=== PATIENT | male | born 1950 | race Caucasian/White ===

== ENCOUNTER 2020-03-24 14:44 | Outpatient (REF) | payer MEDICARE, MEDICAID, SELFPAY ==
[2020-03-24 18:37] LABS: HCT 47.4 % (40.0-50.0); HGB 16.3 g/dL (13.5-17.5); MCH 30.6 pg (27.0-33.0); MCHC 34.4 % (32.0-36.0); MCV 89.1 fL (80-95); MPV 12.3 fL (8.0-11.0); Platelet Count 154 10^3/uL (130-400); RBC 5.32 10^6/uL (4.36-5.78); RDW 11.9 % (11.8-14.1); RDW-SD 38.9 fL; WBC 8.17 10^3/uL (4.4-10.8)
[2020-03-24 18:56] LABS: Anion Gap 8.9 mmol/L (3-11); BUN 12 mg/dL (7-18); CO2 25.1 mmol/L (21.0-32.0); CREATININE 0.76 mg/dL (0.70-1.30); Calcium 9.1 mg/dL (8.5-10.1); Calculated LDL 147 mg/dL (<100); Chloride 104 mmol/L (98-107); Cholesterol 229 mg/dL (<200); Glucose 89 mg/dL (74-106); HDL Cholesterol 50 mg/dL (40-60); Sodium 138 mmol/L (136-145); Triglyceride 160 mg/dL (<150)
[2020-03-27 12:51] LABS: PSA, Diagnostic 2.6 ng/ml (0-6.5)
== END 2020-03-24 15:04 ==
LOC: NCHCN 14:44
PROVIDERS: PCP Internal Medicine; Visit Provider Physician Assistant
DX: E78.5 Hyperlipidemia, unspecified (principal); I10 Essential (primary) hypertension; K59.00 Constipation, unspecified; N32.81 Overactive bladder
CPT/HCPCS: 80048; 80061; 85027; 84153

== ENCOUNTER → 2020-07-04 07:39 | Outpatient (BNVA) | payer MEDICARE, MEDICAID, SELFPAY | PROVIDERS: PCP Internal Medicine; Referring Provider Internal Medicine; Visit Provider Physical Therapy Assistant | DX: Z12.11 Encounter for screening for malignant neoplasm of colon (principal) ==

== ENCOUNTER 2021-03-24 10:29 | Outpatient (REF) | payer MEDICARE, MEDICAID, SELFPAY ==
[2021-03-24 15:10] LABS: Abs Immature Grans 0.02 10^3/uL (0.0-0.06); Absolute Basophil Count 0.08 10^3/uL (0.0-0.2); Absolute Eosinophil Count 0.19 10^3/uL (0.0-0.7); Absolute Lymphocyte Count 1.77 10^3/uL (1.2-3.4); Absolute Monocyte Count 0.78 10^3/uL (0.1-0.8); Absolute Neutrophil Count 5.57 10^3/uL (1.2-6.7); Eosinophils % 2.3; HCT 51.3 % (40.0-50.0); HGB 17.2 g/dL (13.5-17.5); Immature Grans % 0.2; MCH 30.1 pg (27.0-33.0); MCHC 33.5 % (32.0-36.0); MCV 89.8 fL (80-95); MPV 11.6 fL (8.0-11.0); Monocytes % 9.3; Neutrophils % 66.2; Nucleated RBC 0 %; Platelet Count 165 10^3/uL (130-400); RBC 5.71 10^6/uL (4.36-5.78); RDW 12.2 % (11.8-14.1); RDW-SD 39.8 fL; WBC 8.41 10^3/uL (4.4-10.8)
[2021-03-24 15:30] LABS: ALT 26 U/L (16-63); AST 17 U/L (15-37); Albumin 4.4 g/dL (3.4-5.0); Alkaline Phosphatase 135 U/L (46-116); Anion Gap 8.6 mmol/L (3-11); BUN 10 mg/dL (7-18); Bilirubin, Total 0.8 mg/dL (0.2-1.0); CO2 28.4 mmol/L (21.0-32.0); CREATININE 0.7 mg/dL (0.70-1.30); Calcium 9.5 mg/dL (8.5-10.1); Chloride 104 mmol/L (98-107); Creatine Kinase 28 U/L (39-308); Glucose 93 mg/dL (74-106); Potassium 4.1 mmol/L (3.5-5.1); Sodium 141 mmol/L (136-145); Total Protein 7.7 g/dL (6.4-8.2)
[2021-03-24 15:44] LABS: ESR 20 mm/hr (0-20)
[2021-03-24 15:54] LABS: Calculated LDL 145 mg/dL (<100); Cholesterol 240 mg/dL (<200); HDL Cholesterol 45 mg/dL (40-60); Triglyceride 251 mg/dL (<150)
[2021-03-24 15:54] LABS: Bilirubin Negative (Negative); Blood Trace-lysed (Negative); Clarity Clear (Clear); Glucose Negative (Negative); Ketones Negative (Negative); Leukocyte Esterase Negative (Negative); Nitrite Negative (Negative); Specific Gravity 1.015 (1.005-1.025); Urobilinogen 0.2 EU/dL (Up TO 0.2)
[2021-03-24 16:18] LABS: Vitamin B12 518 pg/mL (193-986)
[2021-03-24 16:22] LABS: Bacteria Negative HPF (Negative); C & S Indicated? No; Crystals Negative HPF (Negative); Epithelial Cells Negative HPF (Negative); Mucus Negative (Negative); RBC 0-2 HPF (0-2); WBC Negative HPF (0-5)
[2021-03-25 11:27] LABS: Hepatitis C Ab w Rflx HCV PCR Negative (Negative)
== END 2021-03-24 10:30 | disposition home or self-care (01) ==
LOC: LBN 10:29
PROVIDERS: Physician Assistant; PCP Internal Medicine; Visit Provider Family Medicine
DX: R21 Rash and other nonspecific skin eruption (principal); R20.9 Unspecified disturbances of skin sensation; K92.1 Melena; Z11.59 Encounter for screening for other viral diseases; I10 Essential (primary) hypertension; E78.5 Hyperlipidemia, unspecified; R31.9 Hematuria, unspecified
CPT/HCPCS: 80053; 80061; 82550; 85652; 86803; 81003; 81015; 82607; 85025

== ENCOUNTER 2021-03-26 14:22 | Outpatient (CLI) | payer MEDICARE, MEDICAID, SELFPAY ==
--- NOTE | 2021-03-26 | DI.RAD_ITS ---
Exam(s) XR HIP RT COMPLETE AP PELVIS EXAM: XR HIP RT COMPLETE AP PELVIS CLINICAL HISTORY: RT HIP PAIN, S/P FALL FEW MONTHS AGO. TECHNIQUE: 2D digital imaging was performed. COMPARISON: No exams were available for comparison FINDINGS: There is no evidence of pelvic nor hip fracture. No obvious degenerative changes in the hips. Addit ional lateral view of the right hip does not reveal degenerative changes. No evidence of avascular n ecrosis. Remainder of the bones of the pelvis appear unremarkable as do the sacroiliac joints. No o sseous lesions. IMPRESSION: No fractures and no degenerative changes. DATA REPOSITORY: RADIATION DOSE DELIVERED:
== END 2021-03-26 14:42 ==
PROVIDERS: PCP Internal Medicine; Visit Provider Physician Assistant Medical
DX: M25.551 Pain in right hip (principal)
CPT/HCPCS: 73502

== ENCOUNTER 2021-04-03 00:58 | Outpatient (CLI) | payer MEDICARE, MEDICAID, SELFPAY ==
[2021-04-03] MEDS: Gadoterate meglumine 20 ML VIAL 18 ML IVP (15:22)
--- NOTE | 2021-04-03 15:40 | DI.MRI_ITS ---
Exam(s) MR THORACIC SPINE WO/W EXAM: MR THORACIC SPINE WO/W CLINICAL HISTORY: THORACIC BACK PAIN,M54.9,H/O MASS,? MYELITIS,URINARY FREQUENCY. TECHNIQUE: Multiplanar multisequence MRI was performed. COMPARISON: No exams were available for comparison FINDINGS: MR examination of thoracic spine was performed according to the usual protocol with additional pre an d post contrast T1 fat sat imaging. No bony signal abnormality seen. Incidental note is made of tiny nerve root cysts at multiple levels bilaterally. The spinal canal is of normal diameter. There is no mass lesion or enhancing lesion i n the spinal canal. There is no mass lesion or enhancing lesion of the spinal cord, which shows norm al signal throughout. No disc herniation identified in the region surveyed. IMPRESSION: Negative thoracic spine MRI. No evidence of mass lesion or enhancing lesion. DATA REPOSITORY:
== END 2021-04-03 01:18 ==
PROVIDERS: PCP Internal Medicine; Visit Provider Physician Assistant Medical
DX: M54.6 Pain in thoracic spine (principal)
CPT/HCPCS: 72157

== ENCOUNTER 2021-04-24 00:34 | Outpatient (CLI) | payer MEDICARE, MEDICAID, SELFPAY ==
--- NOTE | 2021-04-24 09:08 | DI.RAD_ITS ---
Exam(s) XR LUMBAR SPINE COMPLETE EXAM: XR LUMBAR SPINE COMPLETE CLINICAL HISTORY: SCIATICA M54.30. TECHNIQUE: 2D digital imaging was performed of the lumbar spine. Six images were obtained. AP, lat eral, right oblique, left oblique and L5-S1 spot views were obtained. COMPARISON: No exams were available for comparison FINDINGS: BONES: No fracture or destructive lesion. Vertebral bodies are unremarkable. There are endplate osteo phytes at multiple levels of the lumbar spine. DISKS: Intervertebral disc spaces are maintained. ALIGNMENT: Lumbar spinal alignment is within normal limits. No spondylolysis or spondylolisthesis. SOFT TISSUE: Atherosclerosis. IMPRESSION: Mild degenerative changes in the lumbar spine. DATA REPOSITORY: RADIATION DOSE DELIVERED:
--- NOTE | 2021-04-24 09:15 | DI.MRI_ITS ---
Exam(s) MR LUMBAR SPINE WO EXAM: MR LUMBAR SPINE WO CLINICAL HISTORY: SCIATICA M54.30. TECHNIQUE: Multiplanar multisequence MRI of the Lumbar spine was performed. COMPARISON: CR XR LUMBAR SPINE COMPLETE from 04/24/2021 FINDINGS: Bones: The last intervertebral disc space is designated the L5/S1 level for the numbering purpose of this examination. The vertebral body heights are well maintained. Alignment is satisfactory. The si gnal characteristics are unremarkable. Cord: The conus tip ends at the T12 level. It is of normal size and signal intensity. T12-L1: No disc herniations or bulges are present. No central spinal canal or neural foraminal stenos is. L1-2: No disc herniations or bulges are present. No central spinal canal or neural foraminal stenosis . L2-3: No disc herniations or bulges are present. No central spinal canal or neural foraminal stenosis . L3-4: No disc herniations or bulges are present. No central spinal canal or neural foraminal stenosis . L4-5: No disc herniations or bulges are present. No central spinal canal or neural foraminal stenosis . L5-S1: There is a mild diffuse disc bulge. No central spinal canal or neural foraminal stenosis. Soft tissues: Perineural root sleeve cysts are seen at the S2 level. The paraspinal soft tissues are unremarkable. IMPRESSION: No focal disc herniation, central spinal canal or neural foraminal stenosis in the lumbar spine. DATA REPOSITORY:
== END 2021-04-24 00:54 ==
PROVIDERS: PCP Internal Medicine; Visit Provider Physician Assistant
DX: M54.30 Sciatica, unspecified side (principal)
CPT/HCPCS: 72110; 72148

== ENCOUNTER 2021-11-16 09:26 | Outpatient (REF) | payer MEDICARE, MEDICAID, SELFPAY ==
--- NOTE | 2021-11-16 08:14 | SKI_PTH ---
PATIENT: Stewart Soliman LOC: [facility] U#:[id number] AGE/SX: 70/M ROOM: RE11/16/[address]: Tarik Montgomery : 1950 BED: DIS: 11/16/2021 SPEC #: [id number] RECD: 11/16/21 17:46 STATUS: JOSIAS REQ #: [id number] DAVID: 11/16/21 08:[address]: Tarik Montgomery DEPT: Surgical Specimen RECD BY: Kim Cheek ENTERED: 11/16/21 17:47 SP TYPE: NANCY HAGER DR: Austin Chang Tissues: 1 - SKIN BIOPSY(SHAVE/PUNCH) Procedures: SKIN LEVEL 4 Comments: [id number]
[2021-11-16 14:35] LABS: HCT 45.7 % (40.0-50.0); HGB 15.2 g/dL (13.5-17.5); MCH 30.1 pg (27.0-33.0); MCHC 33.3 % (32.0-36.0); MCV 91 fL (80-95); MPV 11.5 fL (8.0-11.0); Platelet Count 182 10^3/uL (130-400); RBC 5.05 10^6/uL (4.36-5.78); RDW 12.6 % (11.8-14.1); RDW-SD 41.4 fL; WBC 7.16 10^3/uL (4.4-10.8)
[2021-11-16 14:49] LABS: ALT 22 U/L (16-63); AST 23 U/L (15-37); Albumin 3.9 g/dL (3.4-5.0); Alkaline Phosphatase 118 U/L (46-116); Anion Gap 7.9 mmol/L (3-11); BUN 14 mg/dL (7-18); Bilirubin, Total 0.7 mg/dL (0.2-1.0); CO2 26.1 mmol/L (21.0-32.0); CREATININE 0.7 mg/dL (0.70-1.30); Calculated LDL 147 mg/dL (<100); Chloride 103 mmol/L (98-107); Cholesterol 230 mg/dL (<200); Glucose 90 mg/dL (74-106); HDL Cholesterol 62 mg/dL (40-60); Potassium 3.8 mmol/L (3.5-5.1); Sodium 137 mmol/L (136-145); Total Protein 7.2 g/dL (6.4-8.2); Triglyceride 108 mg/dL (<150)
[2021-11-17 09:44] LABS: PSA, Screening 3.8 ng/mL (<=6.5)
== END 2021-11-16 09:27 | disposition home or self-care (01) ==
LOC: NCHCN 09:26
PROVIDERS: PCP Internal Medicine; Visit Provider Physician Assistant
DX: L82.1 Other seborrheic keratosis; R35.0 Frequency of micturition; K92.1 Melena; I10 Essential (primary) hypertension; Z12.5 Encounter for screening for malignant neoplasm of prostate; E78.5 Hyperlipidemia, unspecified
CPT/HCPCS: 80053; 80061; 84153; 85027; 88305

== ENCOUNTER → 2021-12-08 13:49 | Outpatient (CLI) | payer MEDICARE, MEDICAID, SELFPAY ==
--- NOTE | 2021-12-08 13:36 | DI.RAD_ITS ---
Exam(s) XR ABDOMEN FLAT PLATE EXAM: XR ABDOMEN FLAT PLATE CLINICAL HISTORY: evaluate constipation K59.00. TECHNIQUE: 2D digital imaging was performed. COMPARISON: No exams were available for comparison FINDINGS: AP supine view the abdomen reveals nonspecific bowel gas pattern in the supine position. No obvious masses nor bowel displacement. Kidneys are obscured by fecal material in the colon. No obvious calc ifications seen along the course of the ureters. Regional bones unremarkable. IMPRESSION: DATA REPOSITORY: RADIATION DOSE DELIVERED:
== END ==
PROVIDERS: PCP Internal Medicine; Visit Provider Nurse Practitioner Family
DX: K59.00 Constipation, unspecified (principal)
CPT/HCPCS: 74018

== ENCOUNTER 2022-02-01 14:41 | Outpatient (CLI) | payer MEDICARE, MEDICAID, SELFPAY ==
[2022-02-01 11:09] LABS: Abs Immature Grans 0.01 10^3/uL (0.0-0.06); Absolute Basophil Count 0.05 10^3/uL (0.0-0.2); Absolute Eosinophil Count 0.13 10^3/uL (0.0-0.7); Absolute Lymphocyte Count 1.41 10^3/uL (1.2-3.4); Absolute Monocyte Count 0.64 10^3/uL (0.1-0.8); Basophils % 0.6; Eosinophils % 1.6; HCT 43.4 % (40.0-50.0); HGB 15.1 g/dL (13.5-17.5); Immature Grans % 0.1; Lymphocytes % 17.3; MCH 31.1 pg (27.0-33.0); MCHC 34.8 % (32.0-36.0); MCV 89 fL (80-95); MPV 10.3 fL (8.0-11.0); Monocytes % 7.9; Neutrophils % 72.5; Platelet Count 155 10^3/uL (130-400); RBC 4.86 10^6/uL (4.36-5.78); RDW 12.3 % (11.8-14.1); RDW-SD 40.4 fL; WBC 8.14 10^3/uL (4.4-10.8)
[2022-02-01 11:34] LABS: ALT 58 U/L (16-63); AST 24 U/L (15-37); Albumin 3.6 g/dL (3.4-5.0); Alkaline Phosphatase 105 U/L (46-116); Anion Gap 9.4 mmol/L (3-11); BUN 15 mg/dL (7-18); Bilirubin, Total 1.1 mg/dL (0.2-1.0); CO2 24.6 mmol/L (21.0-32.0); CREATININE 0.8 mg/dL (0.70-1.30); Calcium 9.2 mg/dL (8.5-10.1); Chloride 103 mmol/L (98-107); Estimated GFR 94.03 (mL/min/1.73m2); Glucose 156 mg/dL (74-106); Potassium 3.7 mmol/L (3.5-5.1); Sodium 137 mmol/L (136-145); Total Protein 7.2 g/dL (6.4-8.2)
== END 2022-02-01 14:42 | disposition home or self-care (01) ==
LOC: LBO 14:42
PROVIDERS: PCP Internal Medicine; Visit Provider Internal Medicine Hematology & Oncology
DX: C20 Malignant neoplasm of rectum (principal)
CPT/HCPCS: 36415; 80053; 85025

== ENCOUNTER 2022-02-10 02:56 | Outpatient (CLI) | payer MEDICARE, MEDICAID, SELFPAY ==
[2022-02-10 11:12] LABS: Abs Immature Grans 0.02 10^3/uL (0.0-0.06); Absolute Basophil Count 0.03 10^3/uL (0.0-0.2); Absolute Eosinophil Count 0.11 10^3/uL (0.0-0.7); Absolute Lymphocyte Count 1.02 10^3/uL (1.2-3.4); Absolute Monocyte Count 0.61 10^3/uL (0.1-0.8); Absolute Neutrophil Count 3.91 10^3/uL (1.2-6.7); Basophils % 0.5; Eosinophils % 1.9; HCT 42.3 % (40.0-50.0); HGB 14.8 g/dL (13.5-17.5); Immature Grans % 0.4; Lymphocytes % 17.9; MCH 31.2 pg (27.0-33.0); MCV 89 fL (80-95); MPV 9.7 fL (8.0-11.0); Monocytes % 10.7; Neutrophils % 68.6; Platelet Count 175 10^3/uL (130-400); RBC 4.74 10^6/uL (4.36-5.78); RDW 12.9 % (11.8-14.1); RDW-SD 40.4 fL
[2022-02-10 11:52] LABS: ALT 57 U/L (16-63); AST 25 U/L (15-37); Albumin 3.7 g/dL (3.4-5.0); Alkaline Phosphatase 115 U/L (46-116); Anion Gap 10.3 mmol/L (3-11); BUN 12 mg/dL (7-18); Bilirubin, Total 0.7 mg/dL (0.2-1.0); CO2 24.7 mmol/L (21.0-32.0); CREATININE 0.7 mg/dL (0.70-1.30); Calcium 9.3 mg/dL (8.5-10.1); Chloride 102 mmol/L (98-107); Glucose 126 mg/dL (74-106); Potassium 3.9 mmol/L (3.5-5.1); Sodium 137 mmol/L (136-145); Total Protein 7.4 g/dL (6.4-8.2)
== END 2022-02-10 02:57 | disposition home or self-care (01) ==
LOC: LBO 02:56
PROVIDERS: PCP Internal Medicine; Visit Provider Internal Medicine Hematology & Oncology
DX: C20 Malignant neoplasm of rectum (principal)
CPT/HCPCS: 36415; 80053; 85025

== ENCOUNTER 2022-02-17 03:21 | Outpatient (CLI) | payer MEDICARE, MEDICAID, SELFPAY ==
[2022-02-17 11:06] LABS: Abs Immature Grans 0.02 10^3/uL (0.0-0.06); Absolute Basophil Count 0.04 10^3/uL (0.0-0.2); Absolute Eosinophil Count 0.12 10^3/uL (0.0-0.7); Absolute Lymphocyte Count 0.74 10^3/uL (1.2-3.4); Absolute Monocyte Count 0.64 10^3/uL (0.1-0.8); Absolute Neutrophil Count 3.96 10^3/uL (1.2-6.7); Basophils % 0.7; Eosinophils % 2.2; HCT 40.8 % (40.0-50.0); HGB 14.4 g/dL (13.5-17.5); Immature Grans % 0.4; Lymphocytes % 13.4; MCH 32.1 pg (27.0-33.0); MCHC 35.3 % (32.0-36.0); MCV 91 fL (80-95); MPV 9.9 fL (8.0-11.0); Monocytes % 11.6; Neutrophils % 71.7; Platelet Count 141 10^3/uL (130-400); RBC 4.48 10^6/uL (4.36-5.78); RDW 13.8 % (11.8-14.1); RDW-SD 42.5 fL; WBC 5.52 10^3/uL (4.4-10.8)
[2022-02-17 11:26] LABS: ALT 60 U/L (16-63); AST 28 U/L (15-37); Albumin 3.7 g/dL (3.4-5.0); Alkaline Phosphatase 118 U/L (46-116); Anion Gap 6.2 mmol/L (3-11); BUN 16 mg/dL (7-18); Bilirubin, Total 0.8 mg/dL (0.2-1.0); CO2 29.8 mmol/L (21.0-32.0); CREATININE 0.9 mg/dL (0.70-1.30); Calcium 9.4 mg/dL (8.5-10.1); Chloride 103 mmol/L (98-107); Estimated GFR 90.74 (mL/min/1.73m2); Glucose 102 mg/dL (74-106); Potassium 4.4 mmol/L (3.5-5.1); Sodium 139 mmol/L (136-145); Total Protein 7.3 g/dL (6.4-8.2)
== END 2022-02-17 03:22 | disposition home or self-care (01) ==
LOC: LBO 03:21
PROVIDERS: PCP Internal Medicine; Visit Provider Internal Medicine Hematology & Oncology
DX: C20 Malignant neoplasm of rectum (principal)
CPT/HCPCS: 36415; 80053; 85025

== ENCOUNTER 2022-02-24 02:44 | Outpatient (CLI) | payer MEDICARE, MEDICAID, SELFPAY ==
[2022-02-24 10:43] LABS: Abs Immature Grans 0.01 10^3/uL (0.0-0.06); Absolute Basophil Count 0.04 10^3/uL (0.0-0.2); Absolute Eosinophil Count 0.09 10^3/uL (0.0-0.7); Absolute Lymphocyte Count 0.58 10^3/uL (1.2-3.4); Absolute Monocyte Count 0.72 10^3/uL (0.1-0.8); Absolute Neutrophil Count 3.73 10^3/uL (1.2-6.7); Basophils % 0.8; Eosinophils % 1.7; HCT 40.4 % (40.0-50.0); HGB 14.1 g/dL (13.5-17.5); Immature Grans % 0.2; Lymphocytes % 11.2; MCH 32.1 pg (27.0-33.0); MCHC 34.9 % (32.0-36.0); MCV 92 fL (80-95); MPV 9.6 fL (8.0-11.0); Monocytes % 13.9; Neutrophils % 72.2; Platelet Count 131 10^3/uL (130-400); RBC 4.39 10^6/uL (4.36-5.78); RDW-SD 45.9 fL; WBC 5.17 10^3/uL (4.4-10.8)
[2022-02-24 11:10] LABS: ALT 46 U/L (16-63); AST 27 U/L (15-37); Albumin 3.9 g/dL (3.4-5.0); Alkaline Phosphatase 117 U/L (46-116); Anion Gap 2.7 mmol/L (3-11); BUN 12 mg/dL (7-18); Bilirubin, Total 0.9 mg/dL (0.2-1.0); CO2 32.3 mmol/L (21.0-32.0); CREATININE 0.9 mg/dL (0.70-1.30); Calcium 9.4 mg/dL (8.5-10.1); Chloride 102 mmol/L (98-107); Estimated GFR 90.74 (mL/min/1.73m2); Glucose 97 mg/dL (74-106); Potassium 4.3 mmol/L (3.5-5.1); Sodium 137 mmol/L (136-145); Total Protein 7.4 g/dL (6.4-8.2)
== END 2022-02-24 02:45 | disposition home or self-care (01) ==
LOC: LBO 02:44
PROVIDERS: PCP Internal Medicine; Visit Provider Internal Medicine Hematology & Oncology
DX: C20 Malignant neoplasm of rectum (principal)
CPT/HCPCS: 36415; 80053; 85025

== ENCOUNTER 2022-03-03 02:11 | Outpatient (CLI) | payer MEDICARE, MEDICAID, SELFPAY ==
[2022-03-03 10:34] LABS: Abs Immature Grans 0.02 10^3/uL (0.0-0.06); Absolute Basophil Count 0.03 10^3/uL (0.0-0.2); Absolute Eosinophil Count 0.19 10^3/uL (0.0-0.7); Absolute Lymphocyte Count 0.46 10^3/uL (1.2-3.4); Absolute Neutrophil Count 3.92 10^3/uL (1.2-6.7); Basophils % 0.6; Eosinophils % 3.6; HCT 38.4 % (40.0-50.0); HGB 13.7 g/dL (13.5-17.5); Immature Grans % 0.4; Lymphocytes % 8.6; MCH 33.1 pg (27.0-33.0); MCHC 35.7 % (32.0-36.0); MCV 93 fL (80-95); MPV 9.5 fL (8.0-11.0); Monocytes % 13.2; Neutrophils % 73.6; Platelet Count 115 10^3/uL (130-400); RBC 4.14 10^6/uL (4.36-5.78); RDW 16.6 % (11.8-14.1); RDW-SD 53.5 fL; WBC 5.32 10^3/uL (4.4-10.8)
[2022-03-03 10:54] LABS: ALT 50 U/L (16-63); AST 30 U/L (15-37); Albumin 3.8 g/dL (3.4-5.0); Alkaline Phosphatase 111 U/L (46-116); BUN 14 mg/dL (7-18); Bilirubin, Total 0.9 mg/dL (0.2-1.0); CREATININE 0.9 mg/dL (0.70-1.30); Calcium 9.1 mg/dL (8.5-10.1); Chloride 103 mmol/L (98-107); Estimated GFR 90.74 (mL/min/1.73m2); Glucose 95 mg/dL (74-106); Potassium 4.2 mmol/L (3.5-5.1); Sodium 138 mmol/L (136-145); Total Protein 7.1 g/dL (6.4-8.2)
== END 2022-03-03 02:12 | disposition home or self-care (01) ==
LOC: LBO 02:11
PROVIDERS: PCP Internal Medicine; Visit Provider Internal Medicine Hematology & Oncology
DX: C20 Malignant neoplasm of rectum (principal)
CPT/HCPCS: 36415; 80053; 85025

== ENCOUNTER 2022-03-31 09:28 | Emergency (ER) | payer MEDICARE, MEDICAID, SELFPAY ==
[2022-03-31] VITALS (22 sets, daily range): BP systolic 124–157; BP diastolic 64–81; PULSE 70–83; RESP 11–28; TEMP 37.1; O2SAT 99
--- NOTE | 2022-03-31 09:30 | RT.EKG_ITS ---
APPROVED REPORT Exam: Resting ECG Reason for Exam: SOB Patient Location: E HR:80 bpm ECG Measurements Heart Rate 80 AXIS [place] 184 P 54 QRSd 83 QRS 53 QT 349 T 45 QTc 405 Conclusion Sinus rhythm...normal P axis, V-rate 60- 99 Low voltage, extremity and precordial leads...extremity<0.5mV, precordial<1.0mV no STEMI, non-diagnostic EKG I have reviewed and interpreted ECG and agree with software generated interpretation.
--- NOTE | 2022-03-31 09:46 | ED.GENADUL_ITS ---
Discharge Plan Disposition Patient Disposition: HOME Condition: Stable Discharge Details Clinical Impression: Diarrhea Primary Care Provider: Tarik Montgomery ED Provider: Marsha Foster Home Meds and New Rx's Prescriptions: Continued sildenafil (pulm.hypertension) 20 mg tablet 20 mg PO TID Rx Instructions: administer doses at least 4-6 hours apart nitroglycerin [Nitrostat] 0.4 mg tablet, sublingual 0.4 mg sublingual Q5-15M PRN Rx Instructions: do not exceed 3 doses per episode aspirin 81 mg tablet,delayed release (DR/EC) 81 mg PO DAILY polyethylene glycol 3350 [Miralax] 17 gram/dose powder 17 g PO DAILY ondansetron HCl 8 mg tablet 1 tab PO PRN PRN (Reason: Nausea) Label Comments: TAKE ONE TABLET BY MOUTH EVERY 8 HOURS NEEDED FOR NAUSEA prochlorperazine maleate 10 mg tablet 1 tab PO PRN PRN (Reason: Nausea) Label Comments: TAKE ONE TABLET BY MOUTH EVERY 6 HOURS NEEDED FOR NAUSEA capecitabine [Xeloda] 500 mg tablet 1 tab PO DAILY Label Comments: 1650 mg bid tamsulosin 0.4 mg capsule 1 cap PO DAILY Label Comments: TAKE TWO CAPSULES BY MOUTH EVERY NIGHT loperamide 2 mg Tablet 2 mg PO DAILY MDD 16 PRN (Reason: Diarrhea) Rx Instructions: 2mg by mouth 4 times daily prn diarrhea miconazole nitrate 2 % Powder See Rx Instructions .ROUTE .COMPLEX PRN Rx Instructions: apply topically prn for stomal irritation acetaminophen 500 mg Tablet 500 mg PO PRN PRN (Reason: Pain) ibuprofen 200 mg Tablet 200 mg PO Q6H PRN diphenhydramine-acetaminophen [Acetaminophen PM] 25-500 mg Tablet 1 tab PO HS triamcinolone acetonide 0.1 % cream 1 applic TOPICAL PRN PRN Label Comments: APPLY TO AFFECTED AREA(S) FOUR TIMES A DAY NEEDED Rx Instructions: apply to affected area 4x daily prn Discharge Instructions Instructions: Acute Diarrhea (ED) Additional Instructions: At this time your labs and electrolytes are reassuring. They are all within normal limits. I do suspect that your symptoms are caused from the last week of changes and procedures that have been going on. Please continue with a brat diet which is bananas rice apples toast to aid in the diarrhea. Follow up with primary care provider in 3-5 days. Return to ED sooner if any worsening or concerns. Increase oral fluids. You for allowing us to care for you today. Referrals: Tarki Montgomery [Primary Care Provider] - 1 week Discharge Data Discharge Date/Time-TO BE ENTERED AT DEPARTURE: 03/31/22 12:22 Medical Decision Making 71-year-old male presents to the ER with a chief complaint of shortness of breath and tachycardia. Patient was referred here by [facility]. Patient has been diagnosed with rectal cancer and has begins in IV chemotherapy on Tuesday. His also reports that last week he had a new Port-A-Cath placed and had a CT of his chest where he did drink some barium. She reports increased liquid output from his iliostomy bag she reports 800 cc in the last 24 hours. Labs ordered including CBC, CMP, troponin, urinalysis and chest x-ray. At this time patient is not tachycardic, O2 sat 99% on room air. I do suspect dehydration and diarrhea related to new chemotherapy. CBC shows no leukocytosis, CMP largely within normal limits sodium potassium within normal limits, BUN 23 creatinine 1.8 glucose is 112 alk phos is 133 urinalysis shows small blood trace protein, 3-5 RBCs. Chest x-ray is within normal limits. I do suspect mild dehydration his labs are reassuring. Patient is not tachycardic here. We will give a liter of fluid and discharge patient home. This text was generated using [email or web address] dictation system, please disregard any oddities of phrase or misspellings. Medical Records Medical records reviewed: Yes I reviewed the patient's medical records. Lab Data Lab results reviewed: Yes I reviewed the patient's lab results. Labs: Laboratory Tests Range/Units 03/31/22 03/31/22 03/31/22 09:57 09:57 09:57 WBC (4.4-10.8) 10^3/uL 5.02 RBC (4.36-5.78) 10^6/uL 4.22 L Hgb (13.5-17.5) g/dL 14.3 Hct (40.0-50.0) % 40.0 MCV (80-95) fL 95 MCH (27.0-33.0) pg 33.9 H MCHC (32.0-36.0) % 35.8 RDW (11.8-14.1) % 15.2 H Plt Count (130-400) 10^3/uL 155 MPV (8.0-11.0) fL 10.4 Immature Gran % 0.4 Neutrophils % 75.2 Lymphocytes % 11.6 Monocytes % 6.4 Eosinophils % 5.8 Basophils % 0.6 Nucleated RBC % (0.0-0.3) % 0.0 Absolute Neutrophils (1.2-6.7) 10^3/uL 3.78 Absolute Lymphocytes (1.2-3.4) 10^3/uL 0.58 L Absolute Monocytes (0.1-0.8) 10^3/uL 0.32 Absolute Eosinophils (0.0-0.7) 10^3/uL 0.29 Absolute Basophils (0.0-0.2) 10^3/uL 0.03 Sodium (136-145) mmol/L 139 Potassium (3.5-5.1) mmol/L 3.9 Chloride (98-107) mmol/L 105 Carbon Dioxide (21.0-32.0) mmol/L 27.1 Anion Gap (3-11) mmol/L 6.9 BUN (7-18) mg/dL 23 H Creatinine (0.70-1.30) mg/dL 0.8 Est GFR (CKD-EPI 2020) (mL/min/1.73m2) 94.03 Glucose (74-106) mg/dL 112 H Calcium (8.5-10.1) mg/dL 8.9 Magnesium (1.8-2.4) mg/dL 2.1 Total Bilirubin (0.2-1.0) mg/dL 1.0 AST (15-37) U/L 25 ALT (16-63) U/L 43 Alkaline Phosphatase (46-116) U/L 133 H Troponin I (<or=60) ng/L < 50 Total Protein (6.4-8.2) g/dL 7.3 Albumin (3.4-5.0) g/dL 3.9 Urine Color (Yellow) Yellow Urine Clarity (Clear) Clear Urine pH (5-8) 6.0 Ur Specific [place] (1.005-1.025) >= 1.030 H Urine Protein (Negative) mg/dL Trace H Urine Ketones (Negative) mg/dL Negative Urine Blood (Negative) Small H Urine Nitrite (Negative) Negative Urine Bilirubin (Negative) Negative Urine Urobilinogen (Up TO 0.2) EU/dL 0.2 Ur Leukocyte Esterase (Negative) Negative Urine RBC (0-2) HPF 3-5 H Urine WBC (0-5) HPF Negative Ur Epithelial Cells (Negative) HPF Rare Urine Crystals (Negative) HPF Negative Urine Bacteria (Negative) HPF Negative Urine Casts (Negative) LPF Negative Urine Mucus (Negative) Trace Ur Culture Indicated? No Urine Glucose (Negative) mg/dL Negative Range/Units 03/31/22 12:37 WBC (4.4-10.8) 10^3/uL RBC (4.36-5.78) 10^6/uL Hgb (13.5-17.5) g/dL Hct (40.0-50.0) % MCV (80-95) fL MCH (27.0-33.0) pg MCHC (32.0-36.0) % RDW (11.8-14.1) % Plt Count (130-400) 10^3/uL MPV (8.0-11.0) fL Immature Gran % Neutrophils % Lymphocytes % Monocytes % Eosinophils % Basophils % Nucleated RBC % (0.0-0.3) % Absolute Neutrophils (1.2-6.7) 10^3/uL Absolute Lymphocytes (1.2-3.4) 10^3/uL Absolute Monocytes (0.1-0.8) 10^3/uL Absolute Eosinophils (0.0-0.7) 10^3/uL Absolute Basophils (0.0-0.2) 10^3/uL Sodium (136-145) mmol/L Potassium (3.5-5.1) mmol/L Chloride (98-107) mmol/L Carbon Dioxide (21.0-32.0) mmol/L Anion Gap (3-11) mmol/L BUN (7-18) mg/dL Creatinine (0.70-1.30) mg/dL Est GFR (CKD-EPI 2020) (mL/min/1.73m2) Glucose (74-106) mg/dL Calcium (8.5-10.1) mg/dL Magnesium (1.8-2.4) mg/dL Total Bilirubin (0.2-1.0) mg/dL AST (15-37) U/L ALT (16-63) U/L Alkaline Phosphatase (46-116) U/L Troponin I (<or=60) ng/L Cancelled Total Protein (6.4-8.2) g/dL Albumin (3.4-5.0) g/dL Urine Color (Yellow) Urine Clarity (Clear) Urine pH (5-8) Ur Specific [place] (1.005-1.025) Urine Protein (Negative) mg/dL Urine Ketones (Negative) mg/dL Urine Blood (Negative) Urine Nitrite (Negative) Urine Bilirubin (Negative) Urine Urobilinogen (Up TO 0.2) EU/dL Ur Leukocyte Esterase (Negative) Urine RBC (0-2) HPF Urine WBC (0-5) HPF Ur Epithelial Cells (Negative) HPF Urine Crystals (Negative) HPF Urine Bacteria (Negative) HPF Urine Casts (Negative) LPF Urine Mucus (Negative) Ur Culture Indicated? Urine Glucose (Negative) mg/dL HPI General Mode of arrival: ambulatory . Date/Time Provider Initiated Documentation: 03/31/22 09:35 . Limitations to Documentation: no limitations . Information obtained by: patient, RN/MD, RN notes reviewed and old records reviewed . HPI Narrative: 71-year-old male presents to the ER with a chief complaint of shortness of breath and tachycardia. Patient was referred here by [facility]. Patient has been diagnosed with rectal cancer and has begins in IV chemotherapy on Tuesday. His also reports that last week he had a new Port-A-Cath placed and had a CT of his chest where he did drink some barium. She reports increased liquid output from his iliostomy bag she reports 800 cc in the last 24 hours. He reports some nausea no vomiting, shortness of breath and some tachycardia with the nausea. He has a small amount of left-sided chest pain which began on Tuesday after the chemotherapy. He is alert and oriented denies any other abdominal pain or any other associated symptoms. He did urinate this morning and upon arrival to the ER. He is normal sinus rhythm with a rate of 81 and breathing is eupneic upon arrival. Related Data Home Medications Medication Instructions Recorded Confirmed aspirin 81 mg tablet,delayed 81 mg PO DAILY 05/07/20 03/31/22 release nitroglycerin 0.4 mg sublingual 0.4 mg sublingual Q5-15M PRN 05/07/20 03/31/22 tablet (Nitrostat) polyethylene glycol 3350 17 17 g PO DAILY 05/07/20 12/08/21 gram/dose oral powder (Miralax) sildenafil (pulm.hypertension) 20 20 mg PO TID 06/18/21 03/31/22 mg tablet acetaminophen 500 mg tablet 500 mg PO PRN PRN Pain 03/31/22 03/31/22 capecitabine 500 mg tablet (Xeloda) 1 tab PO DAILY 03/31/22 03/31/22 diphenhydramine 25 1 tab PO HS 03/31/22 03/31/22 mg-acetaminophen 500 mg tablet (Acetaminophen PM) ibuprofen 200 mg tablet 200 mg PO Q6H PRN 03/31/22 03/31/22 loperamide 2 mg tablet 2 mg PO DAILY PRN Diarrhea 03/31/22 03/31/22 miconazole nitrate 2 % topical See Rx Instructions .Route 03/31/22 03/31/22 powder .COMPLEX PRN ondansetron HCl 8 mg tablet 1 tab PO PRN PRN Nausea 03/31/22 03/31/22 prochlorperazine maleate 10 mg 1 tab PO PRN PRN Nausea 03/31/22 03/31/22 tablet tamsulosin 0.4 mg capsule 1 cap PO DAILY 03/31/22 03/31/22 triamcinolone acetonide 0.1 % 1 applic topical PRN PRN 03/31/22 03/31/22 topical cream Allergies Allergy/AdvReac Type Severity Reaction Status Date / Time No Known Allergies Allergy Verified 12/08/21 11:44 General Stated Complaint: SOB EVON: 2 Review of Systems All systems reviewed & are unremarkable except as noted in HPI and below Constitutional Constitutional: Reports as per HPI and Denies fever(s) Cardiovascular Cardiovascular: Reports chest pain, Denies syncope, Reports rapid heart rate, Denies pedal edema and Reports dyspnea Respiratory Respiratory: Denies cough, Reports dyspnea and Denies wheezing Gastrointestinal Gastrointestinal: Reports as per HPI, Denies abdominal pain, Denies hematochezia, Denies constipation, Reports diarrhea, Reports nausea and Denies vomiting Neurologic Neurologic: Denies syncope Allergic/Immunologic Allergic/Immunologic: Denies wheezing PFSH All Active Problems (Updated 03/31/22 @ 11:17 by Marsha Foster NP) Diarrhea (Acute) History of coronary artery disease (Acute) Chest pain, exertional (Acute) Medical History Blood in stool CAD (coronary artery disease) Constipation Erectile dysfunction Frequency of urination Hematuria Hip pain, right Hyperlipidemia Hypertension Myocardial infarction Overactive bladder Paresthesia Poor compliance with medication Rash Sciatica Skin lesion Thoracic back pain Social History Smoking/Tobacco Use Status: Never Smoking risk assessment performed?: Yes Alcohol Intake: former Substance use type: does not use Do you feel safe at home: Yes Do you feel safe in your relationship?: Yes Additional Social history: at bedside. Exam Narrative Exam Narrative: Constitutional: Alert and oriented x3. Appears stated age. Normal body habitus. Head: Normocephalic, no trauma. Eyes: Pupils PERRL, Red reflex noted, EOM's intact. Eyelids symmetrical without lesions, discharge, or swelling. ENT: Bilateral External ear normal to inspection, no mastoid TTP, swelling, or erythema, Nasal turbinates WNL, no nasal discharge. Chest: RRR, Normal S1, S2, distal pulses intact. Resp: Lungs clear to auscultation bilaterally, no wheezes, rales, or rhonchi. Abdomen: Soft, non-distended, nontender with palpation, hypoactive bowel sounds all 4 quads. Ileostomy noted to his right abdomen, no surrounding erythema or induration of the stoma, there is brown-greenish liquidy output noted in the ostomy bag. Musculoskeletal: Normal gait, 5/5 strength to all four extremities. Skin: No suspicious rashes or lesions. Capillary refill less than 2 sec. Neurologic: Cranial nerves II-XII intact. Alert and oriented x 3. Motor: No deficits noted. Sensory: Intact bilaterally all 4 extremities. Reflexes: DTR's intact bilaterally.. Hematologic/Lymphatic: No ecchymosis, no lymphadenopathy. Course Vital Signs Vital signs: Vital Signs Temperature 37.1 C 03/31/22 09:38 Pulse 81 03/31/22 09:38 Respiratory Rate 20 03/31/22 09:38 Blood Pressure 157/81 H 03/31/22 09:38 Pulse Oximetry 99 03/31/22 09:38 Temperature 37.1 C 03/31/22 09:38 Temperature Source Temporal Artery Scan 03/31/22 09:38 Pulse 81 03/31/22 09:38 Respiratory Rate 20 03/31/22 09:38 Blood Pressure 157/81 H 03/31/22 09:38 Blood Pressure Position Sitting 03/31/22 09:38 Pulse Oximetry 99 03/31/22 09:38 Oxygen Delivery Method Room Air 03/31/22 09:38 Oxygen Flow Rate 0 03/31/22 09:38 Pain Level 0 03/31/22 09:38
--- NOTE | 2022-03-31 10:08 | DI.RAD_ITS ---
Exam(s) XR PORTABLE CHEST AP EXAM: XR PORTABLE CHEST AP CLINICAL HISTORY: SOB TECHNIQUE: 2D digital imaging was performed of the chest. One image was obtained. An AP view was ob tained. COMPARISON: No exams were available for comparison FINDINGS: MEDIASTINUM: Normal. HEART: Normal. PULMONARY VASCULATURE: Normal. LUNGS: Clear. PLEURAL SPACE: No pleural effusion or pneumothorax. BONE:Within normal limits for the patient's age. OTHER FINDINGS:The tip of the Yrvdcf-V-Rlmv catheter is in good position near the junction of the sup erior vena cava and right atrium. IMPRESSION: No acute pulmonary findings. DATA REPOSITORY: RADIATION DOSE DELIVERED:
[2022-03-31 10:12] LABS: Abs Immature Grans 0.02 10^3/uL (0.0-0.06); Absolute Basophil Count 0.03 10^3/uL (0.0-0.2); Absolute Eosinophil Count 0.29 10^3/uL (0.0-0.7); Absolute Lymphocyte Count 0.58 10^3/uL (1.2-3.4); Absolute Monocyte Count 0.32 10^3/uL (0.1-0.8); Absolute Neutrophil Count 3.78 10^3/uL (1.2-6.7); Basophils % 0.6; Eosinophils % 5.8; HGB 14.3 g/dL (13.5-17.5); Immature Grans % 0.4; Lymphocytes % 11.6; MCH 33.9 pg (27.0-33.0); MCHC 35.8 % (32.0-36.0); MCV 95 fL (80-95); MPV 10.4 fL (8.0-11.0); Monocytes % 6.4; Neutrophils % 75.2; Platelet Count 155 10^3/uL (130-400); RBC 4.22 10^6/uL (4.36-5.78); RDW 15.2 % (11.8-14.1); RDW-SD 52.5 fL; WBC 5.02 10^3/uL (4.4-10.8)
[2022-03-31 10:14] LABS: Bilirubin Negative (Negative); Blood Small (Negative); Clarity Clear (Clear); Glucose Negative (Negative); Ketones Negative (Negative); Leukocyte Esterase Negative (Negative); Nitrite Negative (Negative); Specific Gravity >= 1.030 (1.005-1.025); Urobilinogen 0.2 EU/dL (Up TO 0.2)
[2022-03-31 10:21] LABS: Bacteria Negative HPF (Negative); C & S Indicated? No; Casts Negative LPF (Negative); Crystals Negative HPF (Negative); Epithelial Cells Rare HPF (Negative); Mucus Trace (Negative); WBC Negative HPF (0-5)
[2022-03-31 10:29] LABS: ALT 43 U/L (16-63); AST 25 U/L (15-37); Albumin 3.9 g/dL (3.4-5.0); Alkaline Phosphatase 133 U/L (46-116); Anion Gap 6.9 mmol/L (3-11); BUN 23 mg/dL (7-18); CO2 27.1 mmol/L (21.0-32.0); CREATININE 0.8 mg/dL (0.70-1.30); Calcium 8.9 mg/dL (8.5-10.1); Chloride 105 mmol/L (98-107); Estimated GFR 94.03 (mL/min/1.73m2); Glucose 112 mg/dL (74-106); Magnesium 2.1 mg/dL (1.8-2.4); Potassium 3.9 mmol/L (3.5-5.1); Sodium 139 mmol/L (136-145); Total Protein 7.3 g/dL (6.4-8.2); Troponin I < 50 ng/L (<or=60)
[2022-03-31] MEDS: Normal Saline 1,000 ML 1000 ML IV (11:04)
[2022-03-31] MEDS: Heparin 500 UNITS/5 ML SYRINGE (12:08)
== END 2022-03-31 12:22 | disposition home or self-care (01) ==
PROVIDERS: Emergency Provider Registered Nurse Emergency; PCP Physician Assistant
DX: R19.7 Diarrhea, unspecified (principal); C20 Malignant neoplasm of rectum; Z79.82 Long term (current) use of aspirin
CPT/HCPCS: 36415; 80053; 93005; 96360; 99284; 71045; 81003; 81015; 83735; 84484; 85025; 93010; 99285

== ENCOUNTER → 2022-04-05 13:28 | Outpatient (CLI) | payer MEDICARE, MEDICAID, SELFPAY ==
--- NOTE | 2022-04-05 | DI.CT_ITS ---
Exam(s) CT CHEST PE CTA EXAM: CT CHEST PE CTA CLINICAL HISTORY: RECTAL CA, C20; SOB, R06.00. TECHNIQUE: Imaging Protocol: Axial CT angiography was performed with multi-slice acquisition and mu lti-planar reconstructions as well as axial, coronal and sagittal MIP reconstructions. CONTRAST MATERIAL: Intravenous: Omnipaque 350 Contrast volume:100 ml COMPARISON: CR XR PORTABLE CHEST AP from 03/31/2022 FINDINGS: Pulmonary Arteries: No evidence of filling defect to suggest pulmonary emboli. Tracheobronchial tree: Patent where visualized. Mediastinum and Sasha: No dominant adenopathy or fluid collection. Pulmonary parenchyma: No consolidation or dominant measurable mass. Few scattered cysts are seen. 4 millimeter circumscribed nodule left lung base. Pleura: No effusion or pneumothorax. Heart: The heart is not dilated. Mild coronary artery calcifications are seen. Aorta: Thoracic aorta non-dilated. No aneurysm. No dissection. Moderate atherosclerotic changes wi th mural thrombus near the arch. Upper abdomen: Unremarkable. Bones: Unremarkable for age. Tubes, Catheters, and Lines: Port over right upper chest. IMPRESSION: No evidence of pulmonary embolism or other acute abnormality.. RADIATION DOSE DELIVERED: 453.02mGy.cm Total DLP DATA REPOSITORY: All CT scans at this facility are submitted to the National Radiology Data Registry (NRDR) Dose Index Registry (DIR) with the [employer] (ACR). RADIATION OPTIMIZATION: All CT scans at this facility use at least one of these dose optimization te chniques: automated exposure control; mA and/or kV adjustment per patient size (includes targeted exa ms where dose is matched to clinical indication); or iterative reconstruction.
[2022-04-05] MEDS: Omnipaque 350 MG/ML 500 ML BTL-Imaging package IJ (14:50)
[2022-04-05] MEDS: Normal Saline - Diluent 50 ML VIAL IJ (14:51)
== END ==
PROVIDERS: PCP Physician Assistant; Visit Provider Internal Medicine Hematology & Oncology
DX: C20 Malignant neoplasm of rectum (principal); R06.00 Dyspnea, unspecified
CPT/HCPCS: 71275

== ENCOUNTER 2022-04-11 01:02 | Outpatient (RCR) | payer MEDICARE, MEDICAID, SELFPAY ==
[2022-04-09] MEDS: Normal Saline Flush 10 ML SYR IVP (08:59)
[2022-04-09 09:19] LABS: Abs Immature Grans 0.03 10^3/uL (0.0-0.06); Absolute Basophil Count 0.06 10^3/uL (0.0-0.2); Absolute Eosinophil Count 0.38 10^3/uL (0.0-0.7); Absolute Monocyte Count 0.66 10^3/uL (0.1-0.8); Absolute Neutrophil Count 4.32 10^3/uL (1.2-6.7); Eosinophils % 6.2; HCT 37.4 % (40.0-50.0); HGB 13.3 g/dL (13.5-17.5); Immature Grans % 0.5; Lymphocytes % 11.4; MCH 34.2 pg (27.0-33.0); MCHC 35.6 % (32.0-36.0); MCV 96 fL (80-95); MPV 10.1 fL (8.0-11.0); Monocytes % 10.7; Neutrophils % 70.2; Platelet Count 151 10^3/uL (130-400); RBC 3.89 10^6/uL (4.36-5.78); RDW 15.4 % (11.8-14.1); RDW-SD 54.4 fL; WBC 6.15 10^3/uL (4.4-10.8)
[2022-04-09 09:38] LABS: ALT 39 U/L (16-63); AST 21 U/L (15-37); Albumin 3.5 g/dL (3.4-5.0); Alkaline Phosphatase 124 U/L (46-116); Anion Gap 5.6 mmol/L (3-11); BUN 15 mg/dL (7-18); Bilirubin, Total 0.8 mg/dL (0.2-1.0); CO2 28.4 mmol/L (21.0-32.0); CREATININE 0.8 mg/dL (0.70-1.30); Calcium 9.2 mg/dL (8.5-10.1); Chloride 104 mmol/L (98-107); Estimated GFR 94.03 (mL/min/1.73m2); Glucose 95 mg/dL (74-106); Potassium 3.9 mmol/L (3.5-5.1); Sodium 138 mmol/L (136-145); Total Protein 6.8 g/dL (6.4-8.2)
[2022-04-09 20:50] LABS: CEA 1.7 ng/mL (See Note)
[2022-04-11] MEDS: Normal Saline 1,000 ML 500 ML IV (11:54)
[2022-04-11] MEDS: Normal Saline Flush 10 ML SYR IVP (11:57)
[2022-04-11 12:00] VITALS: BP 131/80; PULSE 68; RESP 16; TEMP 36.7; O2SAT 97
[2022-04-11] MEDS: Heparin 500 UNITS/5 ML SYRINGE IV (14:15)
== END 2022-04-21 23:59 | disposition home or self-care (01) ==
LOC: INF 01:02
PROVIDERS: PCP Physician Assistant; Visit Provider Internal Medicine Hematology & Oncology
DX: C20 Malignant neoplasm of rectum (principal); Z45.2 Encounter for adjustment and management of vascular access device
CPT/HCPCS: 36591; 80053; 96360; 96361; 96523; 82378; 85025

== ENCOUNTER 2022-05-21 00:39 | Outpatient (RCR) | payer MEDICARE, MEDICAID, SELFPAY ==
[2022-04-22 00:11] VITALS: BP 131/80; PULSE 68; RESP 16; TEMP 36.7
[2022-04-23] MEDS: Normal Saline Flush 10 ML SYR IVP (09:08)
[2022-04-23 09:24] LABS: Abs Immature Grans 0.07 10^3/uL (0.0-0.06); Absolute Basophil Count 0.07 10^3/uL (0.0-0.2); Absolute Eosinophil Count 0.27 10^3/uL (0.0-0.7); Absolute Lymphocyte Count 0.93 10^3/uL (1.2-3.4); Absolute Monocyte Count 0.98 10^3/uL (0.1-0.8); Absolute Neutrophil Count 5.65 10^3/uL (1.2-6.7); Basophils % 0.9; Eosinophils % 3.4; HCT 39.9 % (40.0-50.0); HGB 14.3 g/dL (13.5-17.5); Immature Grans % 0.9; Lymphocytes % 11.7; MCH 34.4 pg (27.0-33.0); MCHC 35.8 % (32.0-36.0); MCV 96 fL (80-95); MPV 10.4 fL (8.0-11.0); Monocytes % 12.3; Neutrophils % 70.8; Platelet Count 130 10^3/uL (130-400); RBC 4.16 10^6/uL (4.36-5.78); RDW 14.6 % (11.8-14.1); RDW-SD 51.2 fL; WBC 7.97 10^3/uL (4.4-10.8)
[2022-04-23 09:38] LABS: ALT 65 U/L (16-63); AST 33 U/L (15-37); Albumin 3.5 g/dL (3.4-5.0); Alkaline Phosphatase 159 U/L (46-116); Anion Gap 6.4 mmol/L (3-11); BUN 16 mg/dL (7-18); Bilirubin, Total 0.8 mg/dL (0.2-1.0); CO2 26.6 mmol/L (21.0-32.0); Calcium 9.1 mg/dL (8.5-10.1); Chloride 104 mmol/L (98-107); Estimated GFR 79.97 (mL/min/1.73m2); Glucose 99 mg/dL (74-106); Potassium 3.8 mmol/L (3.5-5.1); Sodium 137 mmol/L (136-145)
[2022-04-25] MEDS: Normal Saline 1,000 ML 500 ML IV (12:10)
[2022-04-25] MEDS: Normal Saline Flush 10 ML SYR IVP (12:10)
[2022-04-25] MEDS: Heparin 500 UNITS/5 ML SYRINGE IV (12:11)
[2022-04-25 12:12] VITALS: BP 149/80; PULSE 69; RESP 16; TEMP 36.2; O2SAT 99
[2022-04-26 09:25] LABS: CEA 1.3 ng/mL (See Note)
[2022-04-28 09:05] LABS: ALT 53 U/L (16-63); AST 26 U/L (15-37); Albumin 3.2 g/dL (3.4-5.0); Alkaline Phosphatase 128 U/L (46-116); Anion Gap 10.4 mmol/L (3-11); BUN 18 mg/dL (7-18); Bilirubin, Total 1.5 mg/dL (0.2-1.0); CO2 22.6 mmol/L (21.0-32.0); CREATININE 0.9 mg/dL (0.70-1.30); Calcium 7.5 mg/dL (8.5-10.1); Chloride 107 mmol/L (98-107); Estimated GFR 90.74 (mL/min/1.73m2); Glucose 117 mg/dL (74-106); Potassium 3.2 mmol/L (3.5-5.1); Sodium 140 mmol/L (136-145); Total Protein 6.1 g/dL (6.4-8.2)
[2022-04-28 10:26] LABS: Magnesium 1.8 mg/dL (1.8-2.4)
[2022-04-30] MEDS: Normal Saline Flush 10 ML SYR IVP (08:33)
[2022-04-30 09:09] LABS: Abs Immature Grans 0.09 10^3/uL (0.0-0.06); Absolute Basophil Count 0.12 10^3/uL (0.0-0.2); Absolute Eosinophil Count 0.22 10^3/uL (0.0-0.7); Absolute Lymphocyte Count 0.89 10^3/uL (1.2-3.4); Absolute Monocyte Count 0.72 10^3/uL (0.1-0.8); Absolute Neutrophil Count 5.54 10^3/uL (1.2-6.7); Basophils % 1.6; Eosinophils % 2.9; HCT 41.4 % (40.0-50.0); HGB 14.7 g/dL (13.5-17.5); Immature Grans % 1.2; Lymphocytes % 11.7; MCH 34.3 pg (27.0-33.0); MCHC 35.5 % (32.0-36.0); MCV 97 fL (80-95); MPV 10.2 fL (8.0-11.0); Monocytes % 9.5; Neutrophils % 73.1; Platelet Count 154 10^3/uL (130-400); RBC 4.29 10^6/uL (4.36-5.78); RDW 13.2 % (11.8-14.1); RDW-SD 46.9 fL; WBC 7.58 10^3/uL (4.4-10.8)
[2022-04-30 09:32] LABS: ALT 67 U/L (16-63); AST 28 U/L (15-37); Albumin 3.7 g/dL (3.4-5.0); Alkaline Phosphatase 139 U/L (46-116); Anion Gap 8.6 mmol/L (3-11); BUN 16 mg/dL (7-18); Bilirubin, Total 0.7 mg/dL (0.2-1.0); CO2 24.4 mmol/L (21.0-32.0); Chloride 102 mmol/L (98-107); Estimated GFR 79.97 (mL/min/1.73m2); Glucose 105 mg/dL (74-106); Potassium 3.6 mmol/L (3.5-5.1); Sodium 135 mmol/L (136-145); Total Protein 6.9 g/dL (6.4-8.2)
[2022-05-07 09:14] LABS: Abs Immature Grans 0.02 10^3/uL (0.0-0.06); Absolute Basophil Count 0.04 10^3/uL (0.0-0.2); Absolute Eosinophil Count 0.15 10^3/uL (0.0-0.7); Absolute Monocyte Count 0.66 10^3/uL (0.1-0.8); Absolute Neutrophil Count 2.99 10^3/uL (1.2-6.7); Basophils % 0.9; Eosinophils % 3.3; HCT 38.3 % (40.0-50.0); HGB 13.4 g/dL (13.5-17.5); Immature Grans % 0.4; Lymphocytes % 15.4; MCH 33.9 pg (27.0-33.0); MCV 97 fL (80-95); Monocytes % 14.5; Neutrophils % 65.5; Platelet Count 110 10^3/uL (130-400); RBC 3.95 10^6/uL (4.36-5.78); RDW 13.9 % (11.8-14.1); RDW-SD 49.6 fL; WBC 4.56 10^3/uL (4.4-10.8)
[2022-05-07 09:46] LABS: ALT 81 U/L (16-63); AST 40 U/L (15-37); Albumin 3.2 g/dL (3.4-5.0); Alkaline Phosphatase 156 U/L (46-116); Anion Gap 7.1 mmol/L (3-11); BUN 8 mg/dL (7-18); Bilirubin, Total 0.6 mg/dL (0.2-1.0); CO2 26.9 mmol/L (21.0-32.0); CREATININE 0.9 mg/dL (0.70-1.30); Chloride 104 mmol/L (98-107); Estimated GFR 90.74 (mL/min/1.73m2); Glucose 125 mg/dL (74-106); Magnesium 1.8 mg/dL (1.8-2.4); Potassium 3.7 mmol/L (3.5-5.1); Sodium 138 mmol/L (136-145); Total Protein 6.5 g/dL (6.4-8.2)
[2022-05-07] MEDS: Normal Saline Flush 10 ML SYR IVP (09:59)
[2022-05-07 21:42] LABS: CEA 1.1 ng/mL (See Note)
[2022-05-09] MEDS: Normal Saline 1,000 ML 500 ML IV (12:30)
[2022-05-09] MEDS: Heparin 500 UNITS/5 ML SYRINGE IV (14:30)
[2022-05-09] MEDS: Normal Saline Flush 10 ML SYR IVP (19:48)
[2022-05-21] MEDS: Normal Saline Flush 10 ML SYR IVP (09:20)
[2022-05-21 09:29] LABS: Abs Immature Grans 0.02 10^3/uL (0.0-0.06); Absolute Basophil Count 0.06 10^3/uL (0.0-0.2); Absolute Eosinophil Count 0.11 10^3/uL (0.0-0.7); Absolute Lymphocyte Count 0.84 10^3/uL (1.2-3.4); Absolute Monocyte Count 0.64 10^3/uL (0.1-0.8); Absolute Neutrophil Count 2.97 10^3/uL (1.2-6.7); Basophils % 1.3; Eosinophils % 2.4; HCT 38.2 % (40.0-50.0); HGB 13.4 g/dL (13.5-17.5); Immature Grans % 0.4; Lymphocytes % 18.1; MCH 33.9 pg (27.0-33.0); MCHC 35.1 % (32.0-36.0); MCV 97 fL (80-95); MPV 10.5 fL (8.0-11.0); Monocytes % 13.8; RBC 3.95 10^6/uL (4.36-5.78); RDW 14.1 % (11.8-14.1); RDW-SD 49.6 fL; WBC 4.64 10^3/uL (4.4-10.8)
[2022-05-21 09:46] LABS: Platelet Count 94 10^3/uL (130-400)
[2022-05-21 09:51] LABS: ALT 50 U/L (16-63); AST 36 U/L (15-37); Albumin 3.4 g/dL (3.4-5.0); Alkaline Phosphatase 141 U/L (46-116); Anion Gap 6.5 mmol/L (3-11); BUN 7 mg/dL (7-18); Bilirubin, Total 0.7 mg/dL (0.2-1.0); CO2 27.5 mmol/L (21.0-32.0); CREATININE 0.9 mg/dL (0.70-1.30); Calcium 8.9 mg/dL (8.5-10.1); Chloride 105 mmol/L (98-107); Estimated GFR 90.74 (mL/min/1.73m2); Glucose 101 mg/dL (74-106); Magnesium 1.8 mg/dL (1.8-2.4); Potassium 3.5 mmol/L (3.5-5.1); Sodium 139 mmol/L (136-145); Total Protein 6.8 g/dL (6.4-8.2)
[2022-05-21 20:46] LABS: CEA 1.1 ng/mL (See Note)
== END 2022-05-22 23:59 | disposition home or self-care (01) ==
LOC: INF 00:39
PROVIDERS: PCP Physician Assistant; Visit Provider Internal Medicine Hematology & Oncology
DX: C20 Malignant neoplasm of rectum (principal); R19.8 Other specified symptoms and signs involving the digestive system and abdomen; Z45.2 Encounter for adjustment and management of vascular access device
CPT/HCPCS: 36591; 80053; 96360; 96361; 96523; 82378; 83735; 85025

== ENCOUNTER 2022-06-20 00:09 | Outpatient (RCR) | payer MEDICARE, MEDICAID, SELFPAY ==
[2022-05-23 00:06] VITALS: BP 149/80; PULSE 69; RESP 16; TEMP 36.2
[2022-05-23 12:02] VITALS: BP 130/65; PULSE 75; RESP 20; TEMP 37.5; O2SAT 95
[2022-05-23] MEDS: Normal Saline Flush 10 ML SYR IVP (12:04)
[2022-05-23] MEDS: Heparin 500 UNITS/5 ML SYRINGE IV (12:04)
[2022-05-23] MEDS: Normal Saline 1,000 ML 500 ML IV (12:22)
[2022-06-04] MEDS: Normal Saline Flush 10 ML SYR IVP (08:41)
[2022-06-04 08:46] LABS: Abs Immature Grans 0.03 10^3/uL (0.0-0.06); Absolute Basophil Count 0.04 10^3/uL (0.0-0.2); Absolute Eosinophil Count 0.22 10^3/uL (0.0-0.7); Absolute Lymphocyte Count 0.88 10^3/uL (1.2-3.4); Absolute Monocyte Count 0.79 10^3/uL (0.1-0.8); Absolute Neutrophil Count 3.19 10^3/uL (1.2-6.7); Basophils % 0.8; Eosinophils % 4.3; HCT 40.3 % (40.0-50.0); HGB 14.2 g/dL (13.5-17.5); Immature Grans % 0.6; Lymphocytes % 17.1; MCHC 35.2 % (32.0-36.0); MCV 96 fL (80-95); MPV 10.5 fL (8.0-11.0); Monocytes % 15.3; Neutrophils % 61.9; RBC 4.18 10^6/uL (4.36-5.78); RDW 14.2 % (11.8-14.1); WBC 5.15 10^3/uL (4.4-10.8)
[2022-06-04 09:03] LABS: Diff Comment Diff Reviewed; Platelet Count 86 10^3/uL (130-400); RBC Morphology Normal
[2022-06-04 09:04] LABS: ALT 47 U/L (16-63); AST 35 U/L (15-37); Albumin 3.7 g/dL (3.4-5.0); Alkaline Phosphatase 138 U/L (46-116); Anion Gap 6.1 mmol/L (3-11); BUN 11 mg/dL (7-18); Bilirubin, Total 0.7 mg/dL (0.2-1.0); CO2 27.9 mmol/L (21.0-32.0); CREATININE 0.9 mg/dL (0.70-1.30); Calcium 9.3 mg/dL (8.5-10.1); Chloride 103 mmol/L (98-107); Estimated GFR 90.74 (mL/min/1.73m2); Glucose 104 mg/dL (74-106); Sodium 137 mmol/L (136-145); Total Protein 7.3 g/dL (6.4-8.2)
[2022-06-04 20:29] LABS: CEA 1.6 ng/mL (See Note)
[2022-06-06 12:23] VITALS: BP 142/72; PULSE 66; RESP 20; TEMP 36.6; O2SAT 96
[2022-06-06] MEDS: Normal Saline 1,000 ML 500 ML IV (12:39)
[2022-06-06] MEDS: Normal Saline Flush 10 ML SYR IVP (12:39)
[2022-06-06] MEDS: Heparin 500 UNITS/5 ML SYRINGE IV (12:39)
[2022-06-18] MEDS: Normal Saline Flush 10 ML SYR IVP (09:01)
[2022-06-18 09:14] LABS: Abs Immature Grans 0.06 10^3/uL (0.0-0.06); Absolute Basophil Count 0.08 10^3/uL (0.0-0.2); Absolute Eosinophil Count 0.26 10^3/uL (0.0-0.7); Absolute Lymphocyte Count 0.91 10^3/uL (1.2-3.4); Absolute Monocyte Count 1.04 10^3/uL (0.1-0.8); Absolute Neutrophil Count 7.05 10^3/uL (1.2-6.7); Basophils % 0.9; Eosinophils % 2.8; HGB 14.3 g/dL (13.5-17.5); Immature Grans % 0.6; Lymphocytes % 9.7; MCH 34.6 pg (27.0-33.0); MCHC 35.8 % (32.0-36.0); MCV 97 fL (80-95); MPV 10.7 fL (8.0-11.0); Monocytes % 11.1; Neutrophils % 74.9; Platelet Count 107 10^3/uL (130-400); RBC 4.13 10^6/uL (4.36-5.78); RDW 14.5 % (11.8-14.1)
[2022-06-18 09:37] LABS: ALT 43 U/L (16-63); AST 30 U/L (15-37); Albumin 3.5 g/dL (3.4-5.0); Alkaline Phosphatase 152 U/L (46-116); Anion Gap 7.8 mmol/L (3-11); BUN 13 mg/dL (7-18); Bilirubin, Total 0.7 mg/dL (0.2-1.0); CO2 26.2 mmol/L (21.0-32.0); CREATININE 0.8 mg/dL (0.70-1.30); Calcium 9.3 mg/dL (8.5-10.1); Chloride 106 mmol/L (98-107); Estimated GFR 94.03 (mL/min/1.73m2); Glucose 118 mg/dL (74-106); Magnesium 1.9 mg/dL (1.8-2.4); Potassium 3.5 mmol/L (3.5-5.1); Sodium 140 mmol/L (136-145)
[2022-06-20 11:36] VITALS: BP 136/78; PULSE 72; RESP 17; TEMP 36.7; O2SAT 97
[2022-06-20] MEDS: Normal Saline 1,000 ML 500 ML IV (11:40)
[2022-06-20] MEDS: Normal Saline Flush 10 ML SYR IVP (11:43)
[2022-06-20] MEDS: Heparin 500 UNITS/5 ML SYRINGE IV (11:43)
[2022-06-21 08:53] LABS: CEA 1.4 ng/mL (See Note)
== END 2022-06-22 23:59 | disposition home or self-care (01) ==
LOC: INF 00:09
PROVIDERS: Nurse Practitioner Adult Health; PCP Physician Assistant; Visit Provider Internal Medicine Hematology & Oncology
DX: C20 Malignant neoplasm of rectum (principal); R19.8 Other specified symptoms and signs involving the digestive system and abdomen; Z93.2 Ileostomy status; Z45.2 Encounter for adjustment and management of vascular access device
CPT/HCPCS: 36591; 80053; 96360; 96361; 96523; 82378; 83735; 85025

== ENCOUNTER 2022-07-04 10:20 | Outpatient (RCR) | payer MEDICARE, MEDICAID, SELFPAY ==
[2022-06-23 00:05] VITALS: BP 136/78; PULSE 72; RESP 17; TEMP 36.7
[2022-07-02] MEDS: Normal Saline Flush 10 ML SYR IVP (09:02)
[2022-07-02 09:23] LABS: Abs Immature Grans 0.07 10^3/uL (0.0-0.06); Absolute Basophil Count 0.06 10^3/uL (0.0-0.2); Absolute Lymphocyte Count 0.93 10^3/uL (1.2-3.4); Absolute Monocyte Count 0.87 10^3/uL (0.1-0.8); Absolute Neutrophil Count 5.21 10^3/uL (1.2-6.7); Basophils % 0.8; Eosinophils % 2.7; HCT 42.4 % (40.0-50.0); HGB 14.6 g/dL (13.5-17.5); Lymphocytes % 12.7; MCH 33.7 pg (27.0-33.0); MCHC 34.4 % (32.0-36.0); MCV 98 fL (80-95); MPV 10.6 fL (8.0-11.0); Monocytes % 11.9; Neutrophils % 70.9; Platelet Count 103 10^3/uL (130-400); RBC 4.33 10^6/uL (4.36-5.78); RDW 14.4 % (11.8-14.1); RDW-SD 51.5 fL; WBC 7.34 10^3/uL (4.4-10.8)
[2022-07-02 09:38] LABS: ALT 62 U/L (16-63); AST 38 U/L (15-37); Albumin 3.6 g/dL (3.4-5.0); Alkaline Phosphatase 134 U/L (46-116); Anion Gap 7.2 mmol/L (3-11); BUN 11 mg/dL (7-18); Bilirubin, Total 0.6 mg/dL (0.2-1.0); CO2 27.8 mmol/L (21.0-32.0); CREATININE 0.8 mg/dL (0.70-1.30); Calcium 9.5 mg/dL (8.5-10.1); Chloride 104 mmol/L (98-107); Estimated GFR 94.03 (mL/min/1.73m2); Glucose 120 mg/dL (74-106); Potassium 3.8 mmol/L (3.5-5.1); Sodium 139 mmol/L (136-145); Total Protein 6.8 g/dL (6.4-8.2)
[2022-07-02 21:12] LABS: CEA 1.5 ng/mL (See Note)
[2022-07-04] MEDS: Normal Saline 1,000 ML 500 ML IV (10:30)
[2022-07-04] MEDS: Normal Saline Flush 10 ML SYR IVP (10:30)
[2022-07-04] MEDS: Heparin 500 UNITS/5 ML SYRINGE IV (10:30)
[2022-07-04 10:53] VITALS: BP 160/81; PULSE 72; RESP 20; TEMP 36.8; O2SAT 95
== END 2022-07-20 23:59 | disposition home or self-care (01) ==
LOC: INF 10:20
PROVIDERS: PCP Physician Assistant; Visit Provider Internal Medicine Hematology & Oncology
DX: C20 Malignant neoplasm of rectum (principal); Z45.2 Encounter for adjustment and management of vascular access device
CPT/HCPCS: 36591; 80053; 96360; 96361; 96523; 82378; 85025

== ENCOUNTER 2022-08-25 01:23 | Outpatient (CLI) | payer MEDICARE, MEDICAID, SELFPAY ==
[2022-08-25] MEDS: Barium Sulfate 2% W/V-Berry Smoothie 450 ML BTL 900 ML PO (11:36)
[2022-08-25] MEDS: Omnipaque 350 MG/ML 100 ML BTL IJ (13:37)
[2022-08-25] MEDS: Normal Saline Flush 10 ML SYR IVP (13:37)
[2022-08-25] MEDS: Normal Saline - Diluent 50 ML VIAL IJ (13:38)
--- NOTE | 2022-08-25 13:50 | DI.CT_ITS ---
Exam(s) CT CHEST/ABD/PEL W EXAM: CT CHEST/ABD/PEL W CLINICAL HISTORY: F/U RECTAL CA,S/PO CHEMO,RT,RESTAGING EXAM. TECHNIQUE: Imaging Protocol: Axial computed tomography images with coronal and sagittal reformatted images were created and reviewed CONTRAST MATERIAL: Intravenous: Omnipaque 350 Contrast volume:100 ml Oral: Yes. Oral contrast also administered for bowel opacification. CT CT CHEST PE CTA from 04/05/2022 FINDINGS: CHEST: LUNGS: There is platelike atelectasis in the right lower lobe. No confluent infiltrates nor pleural effusions. No ominous pulmonary nodules evident. No focal findings in the trachea and mainstem bron chi.. MEDIASTINUM: There is no hilar nor mediastinal adenopathy. Partially visualized thyroid unremarkable. CARDIAC: Heart size is normal. There is no pericardial effusion.Caliber of the thoracic aorta is wit hin normal limits. OSSEOUS: No significant osseous lesions.. ABDOMEN: There is no ascites. LIVER: There is somewhat hypodense implying steatosis. No discrete focal hepatic lesions. No dilate d intrahepatic ducts. GALLBLADDER/BILIARY: No obvious gallbladder pathology. CBD is not dilated. PANCREAS: No evidence of pancreatic mass nor dilatation of the pancreatic duct. SPLEEN: Spleen is not enlarged. There are no intrasplenic lesions. Splenic and portal veins are fritz nt. ADRENALS: There are no significant adrenal masses. KIDNEYS: No calculi nor hydronephrosis. No solid renal masses. Tiny benign cyst anterior cortex left kidney. ABDOMINAL AORTA: Some atherosclerosis distally prominent aneurysm. Also no significant aneurysmal di latation of the iliac vessels. LYMPH NODES: There is no retroperitoneal nor paraaortic adenopathy. ABDOMINAL WALL: Right sided ileostomy. Colon is collapsed no small bowel obstruction. Fat containin g left inguinal hernia. No bowel loops in the. GI: There is no evidence of bowel obstruction. PELVIS: LYMPH NODES: There is no intrapelvic nor inguinal adenopathy. GI: No evidence of appendicitis.No evidence of sigmoid diverticulitis. URINARY BLADDER: Uniformly thickened wall probably related to enlarged prostate. REPRODUCTIVE: Enlarged prostate gland which measures 5.8 cm wide by 5.9 cm AP. OSSEOUS: No significant osseous lesions. No fractures. Chronic disc space narrowing L5-S1 level. IMPRESSION: 1. No evidence of metastatic disease in the chest, abdomen, and pelvis. 2. Right-sided ostomy. No bowel obstruction, free air, abscess, nor ascites. 3. Enlarged prostate gland. Thickened uniformly thickened urinary bladder wall. 4. No significant osseous lesions. RADIATION DOSE DELIVERED: 2,320.92mGy.cm Total DLP DATA REPOSITORY: All CT scans at this facility are submitted to the National Radiology Data Registry (NRDR) Dose Index Registry (DIR) with the [employer] (ACR). RADIATION OPTIMIZATION: All CT scans at this facility use at least one of these dose optimization te chniques: automated exposure control; mA and/or kV adjustment per patient size (includes targeted exa ms where dose is matched to clinical indication); or iterative reconstruction.
== END 2022-08-25 01:43 ==
LOC: DI 01:27
PROVIDERS: PCP Physician Assistant; Visit Provider Internal Medicine Hematology & Oncology
DX: C20 Malignant neoplasm of rectum (principal); Z92.21 Personal history of antineoplastic chemotherapy; Z92.3 Personal history of irradiation; J98.11 Atelectasis; K76.0 Fatty (change of) liver, not elsewhere classified; N40.0 Benign prostatic hyperplasia without lower urinary tract symptoms; Z93.2 Ileostomy status
CPT/HCPCS: 36591; 74177; 80053; 71260; 82378; 85025; J3490

== ENCOUNTER 2022-08-25 02:42 | Outpatient (RCR) | payer MEDICARE, MEDICAID, SELFPAY ==
[2022-07-21 00:03] VITALS: BP 160/81; PULSE 72; RESP 20; TEMP 36.8
[2022-08-25] MEDS: Normal Saline Flush 10 ML SYR IVP ×2 (11:20→13:45)
[2022-08-25 11:48] LABS: ALT 46 U/L (16-63); AST 27 U/L (15-37); Alkaline Phosphatase 149 U/L (46-116); Anion Gap 8.2 mmol/L (3-11); BUN 11 mg/dL (7-18); Bilirubin, Total 0.9 mg/dL (0.2-1.0); CO2 26.8 mmol/L (21.0-32.0); CREATININE 0.9 mg/dL (0.70-1.30); Calcium 9.8 mg/dL (8.5-10.1); Chloride 104 mmol/L (98-107); Estimated GFR 90.74 (mL/min/1.73m2); Glucose 101 mg/dL (74-106); Potassium 4.1 mmol/L (3.5-5.1); Sodium 139 mmol/L (136-145); Total Protein 7.5 g/dL (6.4-8.2)
[2022-08-25] MEDS: Heparin 500 UNITS/5 ML SYRINGE IV (14:56)
[2022-08-25 22:51] LABS: CEA 1.7 ng/mL (See Note)
== END 2022-09-19 23:59 | disposition home or self-care (01) ==
LOC: INF 02:42
PROVIDERS: PCP Physician Assistant; Visit Provider Internal Medicine Hematology & Oncology
DX: C20 Malignant neoplasm of rectum (principal); Z45.2 Encounter for adjustment and management of vascular access device
CPT/HCPCS: 36591; 80053; 82378

== ENCOUNTER 2022-09-17 15:24 | Emergency (ER) | payer MEDICARE, MEDICAID, SELFPAY ==
--- NOTE | 2022-09-17 15:15 | RT.EKG_ITS ---
APPROVED REPORT Exam: Resting ECG Reason for Exam: weakness Patient Location: E HR:93 bpm ECG Measurements Heart Rate 93 AXIS OH 185 P 53 QRSd 84 QRS 35 QT 350 T 39 QTc 436 Conclusion Sinus rhythm...normal P axis, V-rate 60- 99 Low voltage, precordial leads...precordial leads <1.0mV sinus rhythm, normal axis, normal intervals, non ischemic
[2022-09-17 15:28] VITALS: BP 156/68; PULSE 96; RESP 16; TEMP 36.8; O2SAT 95
--- NOTE | 2022-09-17 15:45 | DI.CT_ITS ---
Exam(s) CT CHEST/ABD/PEL W EXAM: CT CHEST/ABD/PEL W CLINICAL HISTORY: Chest, Pain, Dizziness, Decreased iliostomy output TECHNIQUE: Imaging Protocol: Axial computed tomography images with coronal and sagittal reformatted images were created and reviewed CONTRAST MATERIAL: Intravenous: Omnipaque 350 contrast volume:100 mL Oral: No COMPARISON: CT CT CHEST/ABD/PEL W from 08/25/2022 FINDINGS: CHEST: Tracheobronchial tree: Patent where visualized. Pulmonary parenchyma: No consolidation or dominant measurable mass. Atelectasis is seen in the lung b ases. No focal consolidating infiltrates are present. Visualized thyroid gland: Unremarkable. Mediastinum and Sasha: No dominant adenopathy or fluid collection. The esophagus is unremarkable. Pleura: No effusion or pneumothorax. Heart: The heart is not dilated. Mild coronary artery calcification is present. No pericardial effus ion. Pulmonary arteries: Due to bolus timing the pulmonary arteries are inadequately evaluated particularl y peripherally. No large central pulmonary embolus is seen. Aorta: Thoracic aorta non-dilated. Mild atherosclerosis. Lymph nodes: Within normal limits. Tubes, Catheters, and Lines: There is a right sided port in place. Soft tissues: Unremarkable. Bones:Within normal limits for the patient's age. ABDOMEN: Liver: Normal density. No measurable mass. Portal, Superior Mesenteric, and Splenic Veins: Unremarkable. Gallbladder and Biliary Tract: No radiodense calculus or dilation. Pancreas: Normal density, no abnormal calcifications or inflammatory process. Spleen: Normal. Adrenals: No masses seen. Kidneys: Normal size, contour and axis. No radiodense stones or obstructive uropathy. No masses seen. Abdominal Aorta: Abdominal portion non-dilated. Atherosclerosis is present. Bowel: No obstruction or bowel wall thickening. There is no evidence of appendicitis. There is an os lakisha in the right abdomen. Peritoneal Cavity: No ascites, collection or mesenteric inflammatory response. No free air. Lymph Nodes: Within normal limits. Bones: Within normal limits for the patient's age. Soft Tissues: There is a fat containing left inguinal hernia. There is a small fat containing umbili lucy hernia. PELVIS: Bladder: Symmetric distention, no gross wall thickening. Reproductive Organs: There is an enlarged prostate gland. Lymph Nodes: Within normal limits. Bones: Within normal limits. IMPRESSION: 1. No acute abdominal or pelvic process. 2. No acute pulmonary process. RADIATION DOSE DELIVERED: 1,728.61mGy.cm Total DLP DATA REPOSITORY: All CT scans at this facility are submitted to the National Radiology Data Registry (NRDR) Dose Index Registry (DIR) with the [employer] (A[employer]). RADIATION OPTIMIZATION: All CT scans at this facility use at least one of these dose optimization te chniques: automated exposure control; mA and/or kV adjustment per patient size (includes targeted exa ms where dose is matched to clinical indication); or iterative reconstruction.
--- NOTE | 2022-09-17 15:52 | W.ED.GENAD ---
Discharge Plan Disposition Patient Disposition: Home Discharge Details Clinical Impression: Nausea, Dizziness Primary Care Provider: Tarik Montgomery ED Provider: Marsha Foster Home Meds and New Rx's Prescriptions: Continued sildenafil (pulm.hypertension) 20 mg tablet 20 mg PO DIRECTED PRN Rx Instructions: administer doses at least 4-6 hours apart nitroglycerin [Nitrostat] 0.4 mg tablet, sublingual 0.4 mg sublingual Q5-15M PRN Rx Instructions: do not exceed 3 doses per episode aspirin 81 mg tablet,delayed release (DR/EC) 81 mg PO DAILY polyethylene glycol 3350 [Miralax] 17 gram/dose powder 17 g PO DAILY ondansetron HCl 8 mg tablet 8 mg PO Q8H PRN (Reason: Nausea) Patient Comments: TAKE ONE TABLET BY MOUTH EVERY 8 HOURS NEEDED FOR NAUSEA prochlorperazine maleate 10 mg tablet 1 tab PO PRN PRN (Reason: Nausea) Patient Comments: 09/17/22: not on pt list TAKE ONE TABLET BY MOUTH EVERY 6 HOURS NEEDED FOR NAUSEA capecitabine [Xeloda] 500 mg tablet 1 tab PO DAILY Patient Comments: 09/17/22: completed in june 1649 mg bid tamsulosin 0.4 mg capsule 0.8 mg PO HS Patient Comments: TAKE TWO CAPSULES BY MOUTH EVERY NIGHT loperamide 2 mg Tablet 2 mg PO QID MDD 16 Rx Instructions: 2mg by mouth 4 times daily prn diarrhea miconazole nitrate 2 % Powder See Rx Instructions .ROUTE .COMPLEX PRN Rx Instructions: apply topically prn for stomal irritation acetaminophen 500 mg Tablet 1,000 mg PO Q6H PRN (Reason: Pain) ibuprofen 200 mg Tablet 600 mg PO TID diphenhydramine-acetaminophen [Acetaminophen PM] 25-500 mg Tablet 2 tab PO HS triamcinolone acetonide 0.1 % cream 1 applic TOPICAL PRN PRN Patient Comments: APPLY TO AFFECTED AREA(S) FOUR TIMES A DAY NEEDED Rx Instructions: apply to affected area 4x daily prn diphenoxylate-atropine [Lomotil] 2.5-0.025 mg Tablet 1 - 2 tab PO QID PRN Ensure Plus 0.05 gram- 1.5 kcal/mL liquid 237 ml PO BID Patient Comments: TAKE 237ML BY MOUTH TWO TIMES A DAY (VANILLA) lorazepam 0.5 mg tablet 0.5 - 1 mg PO Q6H PRN Patient Comments: TAKE ONE TO TWO TABLETS BY MOUTH EVERY 6 HOURS NEEDED FOR NAUSEA omeprazole 20 mg capsule,delayed release(DR/EC) 20 mg PO DAILY Patient Comments: Take 1 capsule by mouth once a day Discharge Instructions Instructions: Acute Nausea and Vomiting (ED), Dizziness (ED) Additional Instructions: CT shows no acute abnormality, no evidence for obstruction. Lab work is largely unremarkable. Please take nausea medication up to 3 times daily as needed. You may get meclizine or similar [id number]. Follow up with primary care provider in 3-5 days. Return to ED sooner if any worsening or concerns. Increase oral fluids. Referrals: Tarik Montgomery [Primary Care Provider] - 3 days Medical Decision Making 71-year-old male presents to the ER with chief complaint of dizziness, nausea and diaphoresis which began this morning upon awakening. Patient reports he bent over to get his socks when he became acutely dizzy and sweaty. He reports he then stood up and became dizzy again. This has lasted throughout the day associated with dry heaves, abdominal cramping feeling as if he needs to have a bowel movement. He has had decreased output from his ileostomy. He does report some red streaked stool from his rectum. He does have a history of rectal cancer and finished chemo in June of this year. He reports he has not had a bowel movement from his rectum in the months. He reports small amount of left-sided chest pain. He did take an Ativan and the Zofran prior to arrival. EKG was reviewed by Dr. Wen ER attending, please see his official report, old EKG available for review. Work-up ordered including CBC CMP, lipase, troponin, PT, CT chest abdomen pelvis. Differential diagnosis includes not limited to bowel obstruction, GI bleed, recurrence of rectal cancer, coronary artery disease, dissection Labs are largely unremarkable, no leukocytosis, sodium potassium within normal limits, alk phos 157, urinalysis shows trace protein [address] abdomen pelvis and chest shows nothing acute. No evidence of obstruction. 1859: Upon reevaluation patient reports some continued nausea. Zofran and meclizine ordered we will plan for discharge. Patient did receive a liter of normal saline. I did discuss the CT results and labs with family and patient who verbalized understanding. This text was generated using Nuance dictation system, please disregard any oddities of phrase or misspellings. Medical Records Medical records reviewed: Yes I reviewed the patient's medical records. Lab Data Lab results reviewed: Yes I reviewed the patient's lab results. Labs: Laboratory Tests Range/Units 09/17/22 09/17/22 09/17/22 16:02 16:02 16:02 WBC (4.4-10.8) 10^3/uL 9.35 RBC (4.36-5.78) 10^6/uL 4.95 Hgb (13.5-17.5) g/dL 15.8 Hct (40.0-50.0) % 44.9 MCV (80-95) fL 91 MCH (27.0-33.0) pg 31.9 MCHC (32.0-36.0) % 35.2 RDW (11.8-14.1) % 11.6 L Plt Count (130-400) 10^3/uL 146 MPV (8.0-11.0) fL 10.3 Immature Gran % 0.5 Neutrophils % 86.9 Lymphocytes % 7.8 Monocytes % 4.2 Eosinophils % 0.1 Basophils % 0.5 Nucleated RBC % (0.0-0.3) % 0.0 Absolute Neutrophils (1.2-6.7) 10^3/uL 8.12 H Absolute Lymphocytes (1.2-3.4) 10^3/uL 0.73 L Absolute Monocytes (0.1-0.8) 10^3/uL 0.39 Absolute Eosinophils (0.0-0.7) 10^3/uL 0.01 Absolute Basophils (0.0-0.2) 10^3/uL 0.05 PT (9.3-11.0) sec 10.1 INR (0.9-1.1) 1.0 Sodium (136-145) mmol/L 137 Potassium (3.5-5.1) mmol/L 4.0 Chloride (98-107) mmol/L 105 Carbon Dioxide (21.0-32.0) mmol/L 24.2 Anion Gap (3-11) mmol/L 7.8 BUN (7-18) mg/dL 13 Creatinine (0.70-1.30) mg/dL 0.9 Est GFR (CKD-EPI 2020) (mL/min/1.73m2) 90.74 Glucose (74-106) mg/dL 128 H Calcium (8.5-10.1) mg/dL 9.4 Magnesium (1.8-2.4) mg/dL 2.0 Total Bilirubin (0.2-1.0) mg/dL 1.1 H AST (15-37) U/L 32 ALT (16-63) U/L 44 Alkaline Phosphatase (46-116) U/L 157 H Troponin I (<or=60) ng/L < 50 Total Protein (6.4-8.2) g/dL 7.6 Albumin (3.4-5.0) g/dL 3.8 Lipase (16-77) U/L 23 Urine Color (Yellow) Urine Clarity (Clear) Urine pH (5-8) Ur Specific [place] (1.005-1.025) Urine Protein (Negative) mg/dL Urine Ketones (Negative) mg/dL Urine Blood (Negative) Urine Nitrite (Negative) Urine Bilirubin (Negative) Urine Urobilinogen (Up to 0.2) mg/dL Ur Leukocyte Esterase (Negative) Urine RBC (0-2) HPF Urine WBC (0-5) HPF Ur Epithelial Cells (Negative) HPF Urine Crystals (Negative) HPF Urine Bacteria (Negative) HPF Urine Casts (Negative) LPF Urine Mucus (Negative) Ur Culture Indicated? Urine Glucose (Negative) mg/dL Range/Units 09/17/22 09/17/22 17:35 18:39 WBC (4.4-10.8) 10^3/uL RBC (4.36-5.78) 10^6/uL Hgb (13.5-17.5) g/dL Hct (40.0-50.0) % MCV (80-95) fL MCH (27.0-33.0) pg MCHC (32.0-36.0) % RDW (11.8-14.1) % Plt Count (130-400) 10^3/uL MPV (8.0-11.0) fL Immature Gran % Neutrophils % Lymphocytes % Monocytes % Eosinophils % Basophils % Nucleated RBC % (0.0-0.3) % Absolute Neutrophils (1.2-6.7) 10^3/uL Absolute Lymphocytes (1.2-3.4) 10^3/uL Absolute Monocytes (0.1-0.8) 10^3/uL Absolute Eosinophils (0.0-0.7) 10^3/uL Absolute Basophils (0.0-0.2) 10^3/uL PT (9.3-11.0) sec INR (0.9-1.1) Sodium (136-145) mmol/L Potassium (3.5-5.1) mmol/L Chloride (98-107) mmol/L Carbon Dioxide (21.0-32.0) mmol/L Anion Gap (3-11) mmol/L BUN (7-18) mg/dL Creatinine (0.70-1.30) mg/dL Est GFR (CKD-EPI 2020) (mL/min/1.73m2) Glucose (74-106) mg/dL Calcium (8.5-10.1) mg/dL Magnesium (1.8-2.4) mg/dL Total Bilirubin (0.2-1.0) mg/dL AST (15-37) U/L ALT (16-63) U/L Alkaline Phosphatase (46-116) U/L Troponin I (<or=60) ng/L Cancelled Total Protein (6.4-8.2) g/dL Albumin (3.4-5.0) g/dL Lipase (16-77) U/L Urine Color (Yellow) Yellow Urine Clarity (Clear) Clear Urine pH (5-8) 5.5 Ur Specific [place] (1.005-1.025) >= 1.030 H Urine Protein (Negative) mg/dL Trace H Urine Ketones (Negative) mg/dL 40 H Urine Blood (Negative) Negative Urine Nitrite (Negative) Negative Urine Bilirubin (Negative) Negative Urine Urobilinogen (Up to 0.2) mg/dL 0.2 Ur Leukocyte Esterase (Negative) Negative Urine RBC (0-2) HPF 0-2 Urine WBC (0-5) HPF 0-2 Ur Epithelial Cells (Negative) HPF Rare Urine Crystals (Negative) HPF Negative Urine Bacteria (Negative) HPF Rare Urine Casts (Negative) LPF Negative Urine Mucus (Negative) Heavy Ur Culture Indicated? No Urine Glucose (Negative) mg/dL Negative HPI General Mode of arrival: ambulatory. Date/Time Provider Initiated Documentation: 09/17/22 15:33. Limitations to Documentation: no limitations. Information obtained by: patient, RN notes reviewed and old records reviewed. HPI Narrative: 71-year-old male presents to the ER with chief complaint of dizziness, nausea and diaphoresis which began this morning upon awakening. Patient reports he bent over to get his socks when he became acutely dizzy and sweaty. He reports he then stood up and became dizzy again. This has lasted throughout the day associated with dry heaves, abdominal cramping feeling as if he needs to have a bowel movement. He has had decreased output from his ileostomy. He does report some red streaked stool from his rectum. He does have a history of rectal cancer and finished chemo in June of this year. He reports he has not had a bowel movement from his rectum in the months. He reports small amount of left-sided chest pain. He did take an Ativan and the Zofran prior to arrival. Denies any fever or chills. Related Data Home Medications Medication Instructions Recorded Confirmed aspirin 81 mg tablet,delayed 81 mg PO DAILY 05/07/20 09/17/22 release nitroglycerin 0.4 mg sublingual 0.4 mg sublingual Q5-15M PRN 05/07/20 09/17/22 tablet (Nitrostat) polyethylene glycol 3350 17 17 g PO DAILY 05/07/20 09/17/22 gram/dose oral powder (Miralax) sildenafil (pulm.hypertension) 20 20 mg PO DIRECTED PRN 06/18/21 09/17/22 mg tablet acetaminophen 500 mg tablet 1,000 mg PO Q6H PRN Pain 03/31/22 09/17/22 capecitabine 500 mg tablet (Xeloda) 1 tab PO DAILY 03/31/22 03/31/22 diphenhydramine 25 2 tab PO HS 03/31/22 09/17/22 mg-acetaminophen 500 mg tablet (Acetaminophen PM) ibuprofen 200 mg tablet 600 mg PO TID 03/31/22 09/17/22 loperamide 2 mg tablet 2 mg PO QID 03/31/22 09/17/22 miconazole nitrate 2 % topical See Rx Instructions .Route 03/31/22 09/17/22 powder .COMPLEX PRN ondansetron HCl 8 mg tablet 8 mg PO Q8H PRN Nausea 03/31/22 09/17/22 prochlorperazine maleate 10 mg 1 tab PO PRN PRN Nausea 03/31/22 03/31/22 tablet tamsulosin 0.4 mg capsule 0.8 mg PO HS 03/31/22 09/17/22 triamcinolone acetonide 0.1 % 1 applic topical PRN PRN 03/31/22 09/17/22 topical cream diphenoxylate-atropine 2.5 1 - 2 tab PO QID PRN 09/17/22 09/17/22 mg-0.025 mg tablet (Lomotil) food supplemt, lactose-reduced 237 ml PO BID 09/17/22 09/17/22 0.05 gram-1.5 kcal/mL oral liquid (Ensure Plus) lorazepam 0.5 mg tablet 0.5 - 1 mg PO Q6H PRN 09/17/22 09/17/22 omeprazole 20 mg capsule,delayed 20 mg PO DAILY 09/17/22 09/17/22 release Allergies Allergy/AdvReac Type Severity Reaction Status Date / Time prochlorperazine AdvReac Mild vomits Unverified 09/17/22 15:36 [From Compazine] General Stated Complaint: GI Bleed EVON: 3 Review of Systems All systems reviewed & are unremarkable except as noted in HPI and below Constitutional Constitutional: Reports as per HPI ENT Ears, Nose, Mouth, and Throat: Reports dizziness Cardiovascular Cardiovascular: Reports chest pain, Reports diaphoresis and Denies dyspnea Respiratory Respiratory: Denies dyspnea Gastrointestinal Gastrointestinal: Reports abdominal pain, Reports hematochezia, Reports change in bowel habits, Reports cramping and Reports nausea Neurologic Neurologic: Reports dizziness PFSH All Active Problems (Updated 09/17/22 @ 19:14 by Marsha Foster NP) Nausea (Acute) Dizziness (Acute) History of coronary artery disease (Acute) Chest pain, exertional (Acute) Medical History Blood in stool CAD (coronary artery disease) Constipation Erectile dysfunction Frequency of urination Hematuria Hip pain, right Hyperlipidemia Hypertension Myocardial infarction Overactive bladder Paresthesia Poor compliance with medication Rash Sciatica Skin lesion Thoracic back pain Social History Smoking/Tobacco Use Status: Never Smoking risk assessment performed?: Yes Alcohol Intake: former Substance use type: does not use Do you feel safe at home: Yes Do you feel safe in your relationship?: Yes Additional Social history: at bedside. Exam Narrative Exam Narrative: Constitutional: Alert and oriented x3. Appears stated age. Normal body habitus. Head: Normocephalic, no trauma. Eyes: Pupils PERRL, Red reflex noted, EOM's intact. Eyelids symmetrical without lesions, discharge, or swelling. ENT: Bilateral TM's WNL, External ear normal to inspection, no mastoid TTP, swelling, or erythema, Nasal turbinates WNL, no nasal discharge. Normal dentition, Posterior pharynx WNL, no exudate. Chest: RRR, Normal S1, S2, distal pulses intact. Resp: Lungs clear to auscultation bilaterally, no wheezes, rales, or rhonchi. Abdomen: Soft, non-distended, hypoactive bowel sounds all 4 quads. Ileostomy noted to the right upper quadrant, there is a small amount of brown liquid output noted in the bag which she reports has been there since yesterday. No surrounding erythema induration of the ostomy site. Nontender to palpation all 4 quadrants. Musculoskeletal: Normal gait, 5/5 strength to all four extremities. Skin: No suspicious rashes or lesions. Capillary refill less than 2 sec. Neurologic: Cranial nerves II-XII intact. Alert and oriented x 3. Motor: No deficits noted. Sensory: Intact bilaterally all 4 extremities. Reflexes: DTR's intact bilaterally.. Hematologic/Lymphatic: No ecchymosis, no lymphadenopathy. Course Vital Signs Vital signs: Vital Signs Temperature 36.8 C 09/17/22 15:28 Pulse 96 H 09/17/22 15:28 Respiratory Rate 16 09/17/22 15:28 Blood Pressure 156/68 H 09/17/22 15:28 Pulse Oximetry 95 09/17/22 15:28 Temperature 36.8 C 09/17/22 15:28 Temperature Source Oral 09/17/22 15:28 Pulse 96 H 09/17/22 15:28 Respiratory Rate 16 09/17/22 15:28 Blood Pressure 156/68 H 09/17/22 15:28 Pulse Oximetry 95 09/17/22 15:28 Oxygen Delivery Method Room Air 09/17/22 15:28 Oxygen Flow Rate 0 09/17/22 15:28
[2022-09-17 16:10] LABS: Abs Immature Grans 0.05 10^3/uL (0.0-0.06); Absolute Basophil Count 0.05 10^3/uL (0.0-0.2); Absolute Eosinophil Count 0.01 10^3/uL (0.0-0.7); Absolute Lymphocyte Count 0.73 10^3/uL (1.2-3.4); Absolute Monocyte Count 0.39 10^3/uL (0.1-0.8); Absolute Neutrophil Count 8.12 10^3/uL (1.2-6.7); Basophils % 0.5; Eosinophils % 0.1; HCT 44.9 % (40.0-50.0); HGB 15.8 g/dL (13.5-17.5); Immature Grans % 0.5; Lymphocytes % 7.8; MCH 31.9 pg (27.0-33.0); MCHC 35.2 % (32.0-36.0); MCV 91 fL (80-95); MPV 10.3 fL (8.0-11.0); Monocytes % 4.2; Neutrophils % 86.9; Platelet Count 146 10^3/uL (130-400); RBC 4.95 10^6/uL (4.36-5.78); RDW 11.6 % (11.8-14.1); RDW-SD 38.4 fL; WBC 9.35 10^3/uL (4.4-10.8)
[2022-09-17 16:22] LABS: Prothrombin Time 10.1 sec (9.3-11.0)
[2022-09-17 16:29] LABS: ALT 44 U/L (16-63); AST 32 U/L (15-37); Albumin 3.8 g/dL (3.4-5.0); Alkaline Phosphatase 157 U/L (46-116); Anion Gap 7.8 mmol/L (3-11); BUN 13 mg/dL (7-18); Bilirubin, Total 1.1 mg/dL (0.2-1.0); CO2 24.2 mmol/L (21.0-32.0); CREATININE 0.9 mg/dL (0.70-1.30); Calcium 9.4 mg/dL (8.5-10.1); Chloride 105 mmol/L (98-107); Estimated GFR 90.74 (mL/min/1.73m2); Glucose 128 mg/dL (74-106); Lipase 23 U/L (16-77); Sodium 137 mmol/L (136-145); Total Protein 7.6 g/dL (6.4-8.2); Troponin I < 50 ng/L (<or=60)
[2022-09-17] MEDS: Normal Saline - Diluent 50 ML VIAL IJ (17:54)
[2022-09-17 17:56] LABS: Bilirubin Negative (Negative); Blood Negative (Negative); Clarity Clear (Clear); Glucose Negative (Negative); Ketones 40 mg/dL (Negative); Leukocyte Esterase Negative (Negative); Nitrite Negative (Negative); Specific Gravity >= 1.030 (1.005-1.025); Urobilinogen 0.2 mg/dL (Up to 0.2); pH 5.5 (5-8)
[2022-09-17] MEDS: Omnipaque 350 MG/ML 100 ML BTL IJ (17:57)
[2022-09-17] MEDS: Normal Saline Flush 10 ML SYR IVP (17:57)
[2022-09-17 18:08] LABS: Bacteria Rare HPF (Negative); C & S Indicated? No; Casts Negative LPF (Negative); Crystals Negative HPF (Negative); Epithelial Cells Rare HPF (Negative); Mucus Heavy (Negative); RBC 0-2 HPF (0-2); WBC 0-2 HPF (0-5)
--- NOTE | 2022-09-17 18:34 | DI.VRAD_ITS ---
PROCEDURE INFORMATION: Exam: CT Chest With Contrast; Diagnostic Exam date and time: 09/17/2022 5:53 PM Age: 71 years old Clinical indication: Other: Chest, pain, dizziness, decreased iliostomy output TECHNIQUE: Imaging protocol: Diagnostic computed tomography of the chest with contrast. 3D rendering (Not supervised by radiologist): MIP and/or 3D reconstructed images were created by the technologist. Contrast material: OMNIPAQUE 350; Contrast volume: 100 ml; Contrast route: INTRAVENOUS (IV); COMPARISON: CT CHEST/ABD/PEL W 08/25/2022 1:35 PM FINDINGS: Tubes, catheters and devices: Right IJ infusion port appears to be in good position. Lungs: There is mild dependent atelectasis in both lungs. Lungs are otherwise clear. Pleural spaces: Unremarkable. No pneumothorax. No pleural effusion. Heart: Unremarkable. No cardiomegaly. No pericardial effusion. Lymph nodes: Unremarkable. No enlarged lymph nodes. Vasculature: Unremarkable. No aortic aneurysm. Bones/joints: Mild degenerative changes noted throughout thoracic spine. Soft tissues: Unremarkable. IMPRESSION: No acute abnormality evident in the chest PROCEDURE INFORMATION: Exam: CT Abdomen And Pelvis With Contrast Exam date and time: 09/17/2022 5:53 PM Age: 71 years old Clinical indication: Other: Chest, pain, dizziness, decreased iliostomy output TECHNIQUE: Imaging protocol: Computed tomography of the abdomen and pelvis with contrast. 3D rendering (Not supervised by radiologist): MIP and/or 3D reconstructed images were created by the technologist. Contrast material: OMNIPAQUE 350; Contrast volume: 100 ml; Contrast route: INTRAVENOUS (IV); COMPARISON: CT CHEST/ABD/PEL W 08/25/2022 1:35 PM FINDINGS: Liver: Normal. No mass. Gallbladder and bile ducts: Normal. No calcified stones. No ductal dilation. Pancreas: There is mild partial fatty replacement of the pancreas. Pancreas is otherwise unremarkable. Spleen: Normal. No splenomegaly. Adrenal glands: Normal. No mass. Kidneys and ureters: Normal. No hydronephrosis. Stomach and bowel: Right-sided ileostomy noted. No evidence of bowel wall thickening or obstruction. Appendix: No evidence of appendicitis. Intraperitoneal space: Unremarkable. No free air. No significant fluid collection. Vasculature: Mild scattered atherosclerotic calcification noted in the aorta. No evidence of aortic aneurysm or dissection. Lymph nodes: Unremarkable. No enlarged lymph nodes. Urinary bladder: Unremarkable as visualized. Reproductive: Prostate gland is enlarged, measuring 6.2 cm in greatest diameter. Bones/joints: Mild degenerative changes noted in the lumbar spine. Soft tissues: Unremarkable. IMPRESSION: No acute abnormality evident abdomen or pelvis. Moderate prostatomegaly and other chronic findings as noted. Dictated and Authenticated by: Osito Petit MD. Ordering:TONIE Larson MD
[2022-09-17] MEDS: Meclizine 25 MG TAB PO (19:15)
[2022-09-17] MEDS: Ondansetron 4 MG/2 ML VIAL IVP (19:15)
== END 2022-09-17 19:35 | disposition home or self-care (01) ==
PROVIDERS: Emergency Provider Registered Nurse Emergency; PCP Physician Assistant
DX: R42 Dizziness and giddiness (principal); R11.0 Nausea; R61 Generalized hyperhidrosis; R07.9 Chest pain, unspecified; I10 Essential (primary) hypertension; I25.10 Atherosclerotic heart disease of native coronary artery without angina pectoris; I25.2 Old myocardial infarction; Z79.82 Long term (current) use of aspirin
CPT/HCPCS: 36415; 74177; 80053; 83690; 93005; 96361; 96374; 99285; 71260; 81003; 81015; 83735; 84484; 85025; 85610; 93010; 99284; J2405; J3490

== ENCOUNTER 2022-12-01 02:32 | Outpatient (RCR) | payer MEDICARE, MEDICAID, SELFPAY ==
[2022-12-01] MEDS: Heparin 500 UNITS/5 ML SYRINGE IV (10:19)
[2022-12-01] MEDS: Normal Saline Flush 10 ML SYR IVP (10:19)
[2022-12-01 10:31] LABS: Abs Immature Grans 0.02 10^3/uL (0.0-0.06); Absolute Basophil Count 0.06 10^3/uL (0.0-0.2); Absolute Eosinophil Count 0.14 10^3/uL (0.0-0.7); Absolute Lymphocyte Count 1.26 10^3/uL (1.2-3.4); Absolute Monocyte Count 0.62 10^3/uL (0.1-0.8); Absolute Neutrophil Count 4.71 10^3/uL (1.2-6.7); Basophils % 0.9; Eosinophils % 2.1; HCT 40.4 % (40.0-50.0); HGB 13.9 g/dL (13.5-17.5); Immature Grans % 0.3; Lymphocytes % 18.5; MCHC 34.4 % (32.0-36.0); MCV 87 fL (80-95); MPV 10.2 fL (8.0-11.0); Monocytes % 9.1; Neutrophils % 69.1; Platelet Count 191 10^3/uL (130-400); RBC 4.63 10^6/uL (4.36-5.78); RDW 13.1 % (11.8-14.1); RDW-SD 41.4 fL; WBC 6.81 10^3/uL (4.4-10.8)
[2022-12-01 10:45] LABS: ALT 50 U/L (16-63); AST 22 U/L (15-37); Albumin 3.5 g/dL (3.4-5.0); Alkaline Phosphatase 167 U/L (46-116); Anion Gap 8.2 mmol/L (3-11); BUN 11 mg/dL (7-18); Bilirubin, Total 0.5 mg/dL (0.2-1.0); CO2 26.8 mmol/L (21.0-32.0); CREATININE 0.8 mg/dL (0.70-1.30); Calcium 9.2 mg/dL (8.5-10.1); Chloride 105 mmol/L (98-107); Estimated GFR 93.45 (mL/min/1.73m2); Glucose 91 mg/dL (74-106); Potassium 3.8 mmol/L (3.5-5.1); Sodium 140 mmol/L (136-145); Total Protein 7.2 g/dL (6.4-8.2)
[2022-12-01 20:03] LABS: CEA 1.2 ng/mL (See Note)
== END 2022-12-20 23:59 | disposition home or self-care (01) ==
LOC: INF 02:32
PROVIDERS: PCP Physician Assistant; Visit Provider Internal Medicine Hematology & Oncology
DX: C20 Malignant neoplasm of rectum (principal); Z45.2 Encounter for adjustment and management of vascular access device
CPT/HCPCS: 36591; 80053; 82378; 85025

== ENCOUNTER 2023-03-11 01:56 | Outpatient (RCR) | payer MEDICARE, MEDICAID, SELFPAY ==
[2023-03-11] MEDS: Normal Saline Flush 10 ML SYR IVP (12:36)
[2023-03-11] MEDS: Heparin 500 UNITS/5 ML SYRINGE IV (12:36)
[2023-03-11 12:42] LABS: Abs Immature Grans 0.02 10^3/uL (0.0-0.06); Absolute Basophil Count 0.07 10^3/uL (0.0-0.2); Absolute Eosinophil Count 0.13 10^3/uL (0.0-0.7); Absolute Lymphocyte Count 1.44 10^3/uL (1.2-3.4); Absolute Monocyte Count 0.58 10^3/uL (0.1-0.8); Eosinophils % 1.8; HCT 41.1 % (40.0-50.0); Immature Grans % 0.3; Lymphocytes % 20.5; MCHC 34.1 % (32.0-36.0); MCV 88 fL (80-95); MPV 10.2 fL (8.0-11.0); Monocytes % 8.2; Neutrophils % 68.2; Platelet Count 187 10^3/uL (130-400); RBC 4.67 10^6/uL (4.36-5.78); RDW 13.2 % (11.8-14.1); RDW-SD 42.5 fL; WBC 7.04 10^3/uL (4.4-10.8)
[2023-03-11 12:56] LABS: ALT 28 U/L (16-63); AST 17 U/L (15-37); Albumin 3.7 g/dL (3.4-5.0); Alkaline Phosphatase 138 U/L (46-116); Anion Gap 8.4 mmol/L (3-11); BUN 11 mg/dL (7-18); Bilirubin, Total 0.5 mg/dL (0.2-1.0); CO2 24.6 mmol/L (21.0-32.0); CREATININE 0.8 mg/dL (0.70-1.30); Calcium 9.4 mg/dL (8.5-10.1); Chloride 105 mmol/L (98-107); Estimated GFR 93.45 (mL/min/1.73m2); Glucose 106 mg/dL (74-106); Potassium 3.7 mmol/L (3.5-5.1); Sodium 138 mmol/L (136-145); Total Protein 7.3 g/dL (6.4-8.2)
[2023-03-14 09:32] LABS: CEA 1.7 ng/mL (See Note)
== END 2023-03-22 23:59 | disposition home or self-care (01) ==
LOC: INF 01:56
PROVIDERS: Nurse Practitioner Family; PCP Physician Assistant; Visit Provider Internal Medicine Hematology & Oncology
DX: C20 Malignant neoplasm of rectum (principal); Z45.2 Encounter for adjustment and management of vascular access device
CPT/HCPCS: 36591; 80053; 96523; 82378; 85025

== ENCOUNTER → 2023-03-24 01:11 | Outpatient (CLI) | payer MEDICARE, MEDICAID, SELFPAY ==
--- NOTE | 2023-03-24 | DI.CT_ITS ---
Exam(s) CT CHEST/ABD/PEL W EXAM: CT CHEST/ABD/PEL W CLINICAL HISTORY: RECTA CA, C20,S/P CHEMO,RADIATION,RESECTION, RESTAGING EXAM TECHNIQUE: Imaging Protocol: Axial computed tomography images with coronal and sagittal reformatted images were created and reviewed CONTRAST MATERIAL: Intravenous: Omnipaque 350 contrast volume:100 mL Oral: Yes COMPARISON: CT CT CHEST/ABD/PEL W from 08/25/[address] CHEST/ABD/PEL W from 09/17/2022 FINDINGS: CHEST: Tracheobronchial tree: Patent where visualized. Pulmonary parenchyma: There is a 1 cm nodule in the left lingula. There are dependent atelectatic ch anges in the lungs. No focal consolidating infiltrate is present. Visualized thyroid gland: Unremarkable. Mediastinum and Sasha: No dominant adenopathy or fluid collection. The esophagus is unremarkable. Pleura: No effusion or pneumothorax. Heart: The heart is not dilated. Coronary artery calcifications and/or stents are present. No perica rdial effusion. Pulmonary arteries: No pulmonary emboli are identified. Aorta: Thoracic aorta non-dilated. Atherosclerosis. No evidence of dissection. Lymph nodes: Within normal limits. Tubes, Catheters, and Lines: There is a right-sided Lrejai-N-Hmei catheter. Soft tissues: Unremarkable. Bones:Within normal limits for the patient's age. No aggressive osseous lesions. ABDOMEN: Liver: Normal density. No measurable mass. Portal, Superior Mesenteric, and Splenic Veins: Unremarkable. Gallbladder and Biliary Tract: No radiodense calculus or dilation. Pancreas: Normal density, no abnormal calcifications or inflammatory process. Spleen: Normal. Adrenals: No masses seen. Kidneys: Normal size, contour and axis. No radiodense stones or obstructive uropathy. There are tiny hypodensities seen in the kidneys. They are too small for further characterization but likely reflec t small cysts. There are findings suggestive of obstruction of the midportion of the left ureter by the presacral soft tissue which has developed. It causes moderately severe hydronephrosis. Abdominal Aorta: Abdominal portion non-dilated. Bowel: Postsurgical changes are now seen at the rectosigmoid junction. There is a moderate amount of stool in the colon suggesting constipation. There is no evidence of bowel obstruction. No bowel wa ll thickening is seen. There is no evidence of appendicitis. Peritoneal Cavity: There is now soft tissue thickening in the presacral space. Surgical clips are se en in the presacral space. There appears to be involvement of the left ureter. The proximal left ur eter shows moderate to severe hydronephrosis. There is mild decreased enhancement of the left kidney consistent with obstruction. No free air. Lymph Nodes: Within normal limits. Bones: Within normal limits for the patient's age. No aggressive osseous lesions. Soft Tissues: Thickening of the right side of the anterior abdominal wall to the skin surface which m ay reflect prior surgery. No focal fluid collection is seen to suggest an abscess. Mass cannot be e ntirely excluded. Please correlate with the surgical history. There is a fat containing left inguin al hernia. PELVIS: Bladder: There is thickening of the wall of the urinary bladder. The urinary bladder is incompletely distended. Reproductive Organs: The prostate gland is enlarged. Lymph Nodes: Within normal limits. Bones: Within normal limits. IMPRESSION: 1. Interval surgery in the rectosigmoid colon. 2. Soft tissue thickening has developed in the presacral soft tissues. This may be postsurgical scar ring. Metastatic disease cannot be excluded. There does appear to be involvement of the left ureter . There is moderately severe dilatation of the left ureter proximal to the retroperitoneal soft tiss ue. 3. 1 cm left lingular nodule suspicious for metastatic disease. 4. Thickening of the right anterior abdominal wall. This may be due to prior surgery. Please correl ate with the surgical history. A mass cannot be excluded. No evidence to suggest an abscess. 5. Prostatomegaly. The urinary bladder is incompletely distended with a diffusely thickened wall. T his may be due to underdistention however chronic bladder outlet obstruction or cystitis cannot be ex cluded. 6. Unremarkable CT scan of the chest. RADIATION DOSE DELIVERED: Total DLP DATA REPOSITORY: All CT scans at this facility are submitted to the National Radiology Data Registry (NRDR) Dose Index Registry (DIR) with the [employer] ([employer]). RADIATION OPTIMIZATION: All CT scans at this facility use at least one of these dose optimization te chniques: automated exposure control; mA and/or kV adjustment per patient size (includes targeted exa ms where dose is matched to clinical indication); or iterative reconstruction.
[2023-03-24] MEDS: Normal Saline - Diluent 50 ML VIAL IJ (10:47)
[2023-03-24] MEDS: Omnipaque 350 MG/ML 500 ML BTL-Imaging package IJ (10:48)
[2023-03-24] MEDS: Normal Saline Flush 10 ML SYR IVP (10:51)
[2023-03-24] MEDS: Barium Sulfate 2% W/V-Berry Smoothie 450 ML BTL PO (12:44)
== END ==
PROVIDERS: PCP Physician Assistant; Visit Provider Internal Medicine Hematology & Oncology
DX: C20 Malignant neoplasm of rectum (principal); Z98.890 Other specified postprocedural states; N40.0 Benign prostatic hyperplasia without lower urinary tract symptoms; Z09 Encounter for follow-up examination after completed treatment for conditions other than malignant neoplasm
CPT/HCPCS: 74177; 96523; 71260; J1642

== ENCOUNTER 2023-04-08 13:30 | Outpatient (RCR) | payer MEDICARE, MEDICAID, SELFPAY ==
[2023-03-24] MEDS: Heparin 500 UNITS/5 ML SYRINGE IV (08:47)
[2023-03-24] MEDS: Normal Saline Flush 10 ML SYR IVP (08:47)
[2023-04-08] MEDS: Heparin 500 UNITS/5 ML SYRINGE IV (13:50)
[2023-04-08] MEDS: Normal Saline Flush 10 ML SYR IVP (13:50)
[2023-04-08 14:01] LABS: Abs Immature Grans 0.02 10^3/uL (0.0-0.06); Absolute Basophil Count 0.07 10^3/uL (0.0-0.2); Absolute Eosinophil Count 0.14 10^3/uL (0.0-0.7); Absolute Lymphocyte Count 1.39 10^3/uL (1.2-3.4); Absolute Monocyte Count 0.54 10^3/uL (0.1-0.8); Absolute Neutrophil Count 3.68 10^3/uL (1.2-6.7); Basophils % 1.2; Eosinophils % 2.4; HCT 41.5 % (40.0-50.0); HGB 14.3 g/dL (13.5-17.5); Immature Grans % 0.3; Lymphocytes % 23.8; MCH 30.4 pg (27.0-33.0); MCHC 34.5 % (32.0-36.0); MCV 88 fL (80-95); MPV 10.4 fL (8.0-11.0); Monocytes % 9.2; Neutrophils % 63.1; Platelet Count 171 10^3/uL (130-400); RDW 12.9 % (11.8-14.1); RDW-SD 41.9 fL; WBC 5.84 10^3/uL (4.4-10.8)
[2023-04-08 14:24] LABS: ALT 25 U/L (16-63); AST 18 U/L (15-37); Albumin 3.8 g/dL (3.4-5.0); Alkaline Phosphatase 145 U/L (46-116); Anion Gap 10.9 mmol/L (3-11); BUN 8 mg/dL (7-18); Bilirubin, Total 0.7 mg/dL (0.2-1.0); CO2 24.1 mmol/L (21.0-32.0); CREATININE 0.9 mg/dL (0.70-1.30); Calcium 9.3 mg/dL (8.5-10.1); Chloride 105 mmol/L (98-107); Estimated GFR 90.18 (mL/min/1.73m2); Glucose 121 mg/dL (74-106); Potassium 3.8 mmol/L (3.5-5.1); Sodium 140 mmol/L (136-145); Total Protein 7.2 g/dL (6.4-8.2)
== END 2023-04-21 23:59 | disposition home or self-care (01) ==
LOC: INF 13:30
PROVIDERS: PCP Physician Assistant; Visit Provider Internal Medicine Hematology & Oncology
DX: C20 Malignant neoplasm of rectum (principal); Z45.2 Encounter for adjustment and management of vascular access device
CPT/HCPCS: 36591; 80053; 96523; 85025; J1642